=== PATIENT | male | born 1985 | race Caucasian/White ===

== ENCOUNTER 2024-07-20 04:47 | Emergency (ER) | payer MEDICAID, SELFPAY ==
--- NOTE | 2024-07-20 | ECG_ITS ---
Test Reason : MED CLEARANCE Blood Pressure : */* mmHG Vent. Rate : 51 BPM Atrial Rate : 51 BPM P-R Int : 172 ms QRS Dur : 96 ms QT Int : 440 ms P-R-T Axes : 58 55 37 degrees QTcB Int : 405 ms Sinus bradycardia Otherwise normal ECG No previous ECGs available Referred By: Generic ED Physician Electronically Signed By: TERESA JAQUEZ MD
[2024-07-20 04:50] VITALS: BP 125/74; PULSE 60; RESP 16; TEMP 36.4; O2SAT 99; BMI 25.1
[2024-07-20 05:43] LABS: MANUAL DIFF FLAG NO
[2024-07-20 05:44] LABS: Basophils Absolute Auto 0.1 X10*3/uL (0.0-0.2); Basophils Percent Auto 0.8 % (0-2); Eosinophils Absolute Auto 0.2 X10*3/uL (0.0-0.4); Eosinophils Percent Auto 2.6 % (0-4); Hematocrit 38.2 % (42.0-52.0); Hemoglobin 12.8 g/dl (14.0-18.0); Imm Gran Abs Auto 0.03 X10*3/uL (0.00-0.03); Imm Gran Pct Auto 0.3 % (0.0-0.4); Lymphocytes Absolute Auto 3.2 X10*3/uL (1.2-4.9); Mean Corpuscular HGB Conc 33.5 g/dl (31.0-36.0); Mean Corpuscular Hemoglobin 30.2 pg (27.0-33.0); Mean Corpuscular Volume 90.1 fL (80.0-98.0); Mean Platelet Volume 10.1 fL (9.4-12.4); Monocytes Percent Auto 10.8 % (2-11); Neutrophils Absolute Auto 4.8 x10*3/uL (2.0-8.3); Neutrophils Percent Auto 51.5 % (45-73); Platelet Count 221 X10*3/uL (160-400); Red Blood Count 4.24 X10*6/uL (4.60-5.80); Red Cell Distribution Width 12.9 % (11.0-16.0); White Blood Count 9.3 X10*3/uL (4.8-10.8)
[2024-07-20 06:01] LABS: Acetaminophen LAB < 3 mcg/mL (<30); Alanine Aminotransferase 25 U/L (0-40); Alkaline Phosphatase 83 U/L (39-117); Anion Gap 12 (12-20); Aspartate Amino Transferase 30 U/L (5-37); Bilirubin Total 0.3 mg/dL (0.0-1.0); Blood Urea Nitrogen 21 mg/dL (9-16); Calcium 8.9 mg/dL (8.4-10.2); Carbon Dioxide 24 mmol/L (22-29); Chloride 109 mmol/L (96-108); Creatinine Clr Calc Pharmacy 122.4; Estimated Glomerular Filt Rate > 60; Ethanol < 10 mg/dL; Glucose Random 140 mg/dL (60-115); Potassium 3.8 mmol/L (3.3-5.1); Salicylate < 5.0 mg/dL (15-30); Sodium 141 mmol/L (135-145); Total Protein 6.7 g/dL (6.5-8.0)
--- NOTE | 2024-07-20 06:37 | ED_ITS ---
HPI - General Adult General Chief complaint: Psychiatric Symptoms Stated complaint: stop taking medication can't sleep Time Seen by Provider: 07/20/24 06:34 Source: patient Mode of arrival: ambulatory Limitations: no limitations History of Present Illness ED Provider: Zoey Palacios PA-C HPI narrative: Patient is a 39 year old assigned male at with a history of bipolar disorder presenting to the emergency department today with insomnia and feeling paranoid. Patient states that over the last 3 days he has had difficulty sleeping and has not been taking his lamictal medication. Patient denies any dizziness, lightheadedness, abdominal pain, nausea, vomiting, fever, chills, blurry vision, double vision, loss of vision, chest pain, difficulty breathing, shortness of breath, back pain, night sweats, pain with urination, increased urinary frequency, increased urinary urgency, blood in his urine or stool, syncope or a near syncopal episode, recent trauma or falls, bowel incontinence, bladder incontinence, or any other complaints at this time. Onset (ago): day(s) (3) Relieving factors: none Exacerbating factors: none Associated symptoms: denies other symptoms Treatments prior to arrival: none Related Data Home Medications ?Medication ?Instructions ?Recorded ?Confirmed buprenorphine 8 mg-naloxone 2 mg 2 film buccal BID 07/20/24 07/20/24 sublingual film (Suboxone) Allergies Allergy/AdvReac Type Severity Reaction Status Date / Time haloperidol [From Haldol] Allergy Unknown Verified 07/20/24 04:52 olanzapine [From Zyprexa] Allergy Unknown Verified 07/20/24 04:52 Review of Systems 2 Constitutional: Constitutional: Reports no additional constitutional complaints, Denies chills, Denies fever(s) and Denies night sweats Eyes: Eyes: Reports no additional eye complaints, Denies blurry vision, Denies change in vision, Denies diplopia, Denies eye discharge, Denies loss of vision and Denies eye pain ENT: Denies dizziness Cardiovascular: Cardiovascular: Reports no additional cardiovascular complaints, Denies chest pain, Denies lightheadedness, Denies Loss of Consciousness and Denies dyspnea Respiratory: Respiratory: Reports no additional respiratory complaints and Denies dyspnea Gastrointestinal: Gastrointestinal: Reports no additional gastrointestinal complaints, Denies abdominal pain, Denies melena, Denies hematochezia, Denies change in bowel habits and Denies change in stool character Genitourinary: Genitourinary: Reports no additional male genitourinary complaints, Denies hematuria, Denies oliguria, Denies difficulty urinating, Denies dysuria, Denies urinary frequency, Denies urinary hesitancy, Denies urinary incontinence and Denies urinary urgency Musculoskeletal: Musculoskeletal: Reports no additional musculoskeletal complaints, Denies numbness and Denies tingling Neurologic: Denies dizziness, Denies loss of vision, Denies numbness and Denies tingling Psychiatric: Psychiatric: Reports abnormal sleep pattern, Reports paranoia, Denies homicidal ideation and Denies suicidal ideation Endocrine: Endocrine: Reports no additional endocrine complaints Hematologic/Lymphatic: Hematologic/Lymphatic: Reports no additional hematologic/lymphatic complaints Allergic/Immunologic: Allergic/Immunologic: Reports no additional allergic/immunologic complaints PMFSH Past Medical History Attestation statement: The following information was validated with the patient. Source: old records reviewed and nursing notes reviewed Social History Social History Advance Directives: No Advance Directives Information Provided: Yes Do you have a plan to hurt others: No Plan Physical Exam ED Vital Signs: Vital Signs - 24 hr 07/20/24 04:50 07/20/24 08:07 Temperature 97.6 F 97.6 F Pulse Rate 60 54 Respiratory Rate 16 18 Blood Pressure 125/74 122/76 Pulse Oximetry 99 98 Oxygen Delivery Method Room Air Room Air BMI result Body Mass Index 25.1 Const General: cooperative, no acute distress, alert and awake Nutritional Appearance: well nourished Orientation/consciousness: patient oriented x3 Limitations: no limitations [facility] Head: Yes normal to inspection and Yes atraumatic Ears: hearing grossly normal bilaterally and external ears normal General nose exam: Normal external nose present, no nasal discharge noted and no epistaxis Face and sinus: Yes normal facial exam, No abrasion and No laceration Mouth: Normal oral and palatal mucosa present, no drooling and no muffled voice Eyes General: appearance normal, both eyes and all related structures Periorbital: periorbital findings normal Eyelids: Yes eyelids normal Conjunctivae: conjunctivae normal Pupils: Equal, round and reactive pupils present EOM: EOMs intact bilaterally Neck Neck: Yes normal visual inspection, Yes full ROM and Yes no lymphadenopathy Chest Chest palpation & inspection: normal inspection of the chest Resp Effort & Inspection: normal respiratory effort and able to speak in complete sentences GI Inspection: Yes normal to inspection Neuro General: patient oriented x3, moves all extremities and CN's II-XI intact bilaterally Cranial nerves: Yes Equal, round and reactive pupils present Cognition (Neuro): normal cognition Extrem General: Yes normal to inspection, Yes full ROM and Yes capillary refill normal Psych Appearance: grossly normal Mental Status: mental status grossly normal Affect: Labile affect present Thought process: Confabulating thought process present Medications Administered Discontinued Medications Generic Name Dose Route Start Last Admin Trade Name Clementine PRN Reason Stop Dose Admin Buprenorphine/Naloxone 1 film 07/20/24 09:00 07/20/24 09:39 Buprenorphine/Naloxone 8/2 Mg Film SUBLINGUAL 1 film BID ANDREW Administration Medical Decision Making Medical Decision Making MDM Narrative: Patient is a 39 year old assigned male at with a history of bipolar disorder presenting to the emergency department today with insomnia and feeling paranoid. Patient's physical exam was as noted in the physical exam portion of this note. Patient's blood work was unremarkable. I explained my physical exam findings as well as all test results to the patient. I answered all questions asked by the patient. Patient's disposition is pending CARE team evaluation. 1300 --> Patient evaluated by the CARE team who determined a dual diagnosis bed was appropriate. Patient accepted at [facility]. Patient cleared for transfer. Observation care revealed the the patient does meet necessity for psychiatric hospitalization and has been accepted at [facility]. Final disposition discussed with the patient who verbalized understanding and agreement. Patient completed observation care at 1300, total time spent in observation care was 6 hours and 12 minutes. Differential Diagnosis Differential Diagnoses: The differential diagnosis associated with the presentation includes Sarai Medication non-compliance Insomnia Admission/Observation Consideration of admission/observation: Escalation of care including admission/observation considered Patient accepted at [facility]. Patient cleared for transfer. Consult Healthcare Provider Management of the patient was discussed with: Behavioral Health Provider (spoke to the CARE team as noted in the MDM Rationale portion of this note.) Lab Data [facility] Lab Attestation statement: I reviewed the patient's lab results. My interpretation of these results are in the MDM Rationale portion of this note. 07/20/24 05:38 07/20/24 05:38 Labs: Lab Results 07/20/24 07/20/24 Range/Units 05:38 08:25 WBC 9.3 (4.8-10.8) X10*3/uL RBC 4.24 L (4.60-5.80) X10*6/uL Hgb 12.8 L (14.0-18.0) g/dl Hct 38.2 L (42.0-52.0) % MCV 90.1 (80.0-98.0) fL MCH 30.2 (27.0-33.0) pg MCHC 33.5 (31.0-36.0) g/dl RDW 12.9 (11.0-16.0) % Plt Count 221 (160-400) X10*3/uL MPV 10.1 (9.4-12.4) fL Immature Gran % (Auto) 0.3 (0.0-0.4) % Neut % (Auto) 51.5 (45-73) % Lymph % (Auto) 34.0 (20-40) % [place] % (Auto) 10.8 (2-11) % Eos % (Auto) 2.6 (0-4) % Baso % (Auto) 0.8 (0-2) % Lymph # (Auto) 3.2 (1.2-4.9) X10*3/uL [place] # (Auto) 1.0 (0.1-1.2) X10*3/uL Eos # (Auto) 0.2 (0.0-0.4) X10*3/uL Baso # (Auto) 0.1 (0.0-0.2) X10*3/uL Abs Immat Gran (auto) 0.03 (0.00-0.03) X10*3/uL Absolute Neuts (auto) 4.8 (2.0-8.3) x10*3/uL Absolute Nucleated RBC 0.000 (0.0-0.012) X10*3/uL Nucleated RBC % (auto) 0.0 (0.0-0.2) /100WBC Sodium 141 (135-145) mmol/L Potassium 3.8 (3.3-5.1) mmol/L Chloride 109 H (96-108) mmol/L Carbon Dioxide 24 (22-29) mmol/L Anion Gap 12 (12-20) BUN 21 H (9-16) mg/dL Creatinine 0.75 (0.5-1.4) mg/dL Estim Creat Clear Calc 122.4 Estimated GFR > 60 Random Glucose 140 H (60-115) mg/dL Calcium 8.9 (8.4-10.2) mg/dL Total Bilirubin 0.3 (0.0-1.0) mg/dL AST 30 (5-37) U/L ALT 25 (0-40) U/L Alkaline Phosphatase 83 (39-117) U/L Total Protein 6.7 (6.5-8.0) g/dL Albumin 4.0 (3.5-5.0) g/dL Salicylates < 5.0 L (15-30) mg/dL Urine Opiates Screen Not Detected (Not Detect) Ur Buprenorphine Scrn Positive H (Not Detect) ng/mL Ur Oxycodone Screen Not Detected (Not Detect) ng/mL Urine Methadone Screen Not Detected (Not Detect) ng/mL Urine Fentanyl Screen Not Detected (Not Detect) Acetaminophen < 3 (<30) mcg/mL Ur Barbiturates Screen Not Detected (Not Detect) Ur Phencyclidine Scrn Not Detected (Not Detect) Ur Amphetamines Screen Not Detected (Not Detect) U Benzodiazepines Scrn Not Detected (Not Detect) Urine Cocaine Screen POSITIVE H (Not Detect) U Marijuana (THC) Screen POSITIVE H (Not Detect) Ethyl Alcohol < 10 mg/dL Independent Interpretation I performed an independent interpretation of an: EKG Interpretation: I independently interpreted this EKG and am in agreement with the below findings: Vent. Rate: 51 BPM Atrial Rate: 51 BPM P-R Int: 172 ms QRS Dur: 96 ms QT Int: 440 ms P-R-T Axes: 58 55 37 degrees QTcB Int: 405 ms Sinus bradycardia Otherwise normal ECG Electronically Signed By: SRINIVASAN REAVES MD Dictated By: Srinivasan Reaves MD Signed By: Electronically signed by Srinivasan Reaves MD 07/20/24 1057 Critical Care Time Critical Care Time Critical Care Time: Yes Total Critical Care Time: 38 Attestation: I spent 38 minutes of Critical Care Time with this patient. This does not include time spent on separately reported billable procedures. Discharge Plan Discharge Clinical Impression: Insomnia Patient Disposition: Xfer Other Transfer Details: [facility] Prescriptions: No Action buprenorphine-naloxone [Suboxone] 8-2 mg Film 2 film BUCCAL BID Rx Instructions: place 1 film on inside of (each) cheek Interventions: [place]-Suicide Risk Severity Scale Last Done: 07/20/24 05:49 Print Language: Telugu
[2024-07-20 08:07] VITALS: BP 122/76; PULSE 54; RESP 18; TEMP 36.4; O2SAT 98
[2024-07-20 08:43] LABS: Amphetamine Screen Urine Not Detected (Not Detect); Barbiturates, Urine Not Detected (Not Detect); Benzodiazepines Screen Urine Not Detected (Not Detect); Buprenorphine Scr Positive (Not Detect); Cannabinoid Screen Urine POSITIVE (Not Detect); Cocaine Screen Urine POSITIVE (Not Detect); Fentanyl, urine Not Detected (Not Detect); Methadone Screen, Urine Not Detected (Not Detect); Opiate Screen Urine Not Detected (Not Detect); Oxycodone Screen Urine Not Detected (Not Detect); Phencyclidine Screen Urine Not Detected (Not Detect)
[2024-07-20] MEDS: Buprenorphine/Naloxone 8/2 mg FILM 1 FILM SUBLINGUAL (09:39)
--- NOTE | 2024-07-20 10:52 | PC.NURSE ---
Per Cathy with , pt. is accepted to [facility]. No RN-to-RN report is required, and transport is being booked at this time via [facility] for an [facility] arrival.
--- NOTE | 2024-07-20 11:03 | MHC.CARE ---
Patient has been accepted to [facility] @ [place] [address] [address] Kimberlee michelle. RN and [place] notified and transport being booked.
== END 2024-07-20 13:08 | disposition other institution (70) ==
PROVIDERS: Emergency Provider Emergency Medicine
DX: G47.00 Insomnia, unspecified (principal); F22 Delusional disorders; Z91.148 Patient's other noncompliance with medication regimen for other reason; Z79.899 Other long term (current) drug therapy
CPT/HCPCS: 36415; 80053; 80143; 80179; 80307; 85025; 93005; 99284; S9485

== ENCOUNTER → 2024-07-20 05:26 | Outpatient (BNV) | payer MEDICAID, SELFPAY | PROVIDERS: Emergency Provider Emergency Medicine; Visit Provider Internal Medicine Cardiovascular Disease | DX: R00.1 Bradycardia, unspecified (principal) | CPT/HCPCS: 93010 ==

== ENCOUNTER 2024-12-26 14:50 | Emergency (ER) | payer MEDICAID, SELFPAY ==
--- NOTE | ~2024-12-26 | XR_ITS ---
EXAMINATION: XR CHEST CLINICAL INFORMATION: chest pain COMPARISON: None available. TECHNIQUE: 2 views of the chest were obtained. FINDINGS: No significant abnormality is noted involving the heart, lungs, mediastinum, bony thorax or soft tissues. XR/XR chest 2V IMPRESSION: Unremarkable examination. Electronically signed by: Jonnie Alfredo MD 12/26/2024 04:11 PM EDT
[2024-12-26 14:52] VITALS: BP 150/99; PULSE 75; O2SAT 100
[2024-12-26 15:19] VITALS: BP 148/96; PULSE 71; RESP 18; TEMP 37.2; O2SAT 100; BMI 25.8
--- NOTE | 2024-12-26 15:21 | ED_ITS ---
HPI - Chest Pain General Chief Complaint: General Medical Stated Complaint: HYPERTENSION/ANXIETY PER EMS Time Seen by Provider: 12/26/24 17:13 Source: patient, EMS, RN notes reviewed and old records reviewed Mode of arrival: EMS Limitations: no limitations History of Present Illness ED Provider: Debby Ceballos PA-C HPI narrative: Patient with past medical history significant for mood disorder presenting for evaluation of palpitations. He was discharged recently from [facility]. He has been on Seroquel for a while now for insomnia and mood stabilization. He takes 50 mg in the morning afternoon and 200 at night. He meets with a psychiatrist in [place], [place] once a month. He has not seen them since he was discharged from but does have adequate medicine at home. Patient recently celebrated her friend's birthday by indulging in excessive alcohol use for a week straight. Patient did not want to take his medication during this time as he did not want to be sleepy are unable to celebrate with his friends. His last drink was earlier today 3 nips. He reports not usually being a heavy drinker and only does it once or twice a month but never for this amount of time span. Around 02:00 this morning patient had a lot of tightness in his ears he felt nauseous with palpitations. This continued for several hours including sweating. He sought medical attention for this at a local urgent care facility which referred him to the emergency department. He is no longer endorsing any symptoms and denies any SI HI or AVH. He does not want a psych consultation. He believes his symptoms are due to loss of sleep only having 1-2 hours a night for the past 2-3 nights. He does feel tired and would like to sleep he has not taken his Seroquel again yet for reports that he has gone this long before without taking it and we continued it on his own accord. Patient is denying any current chest pain palpitations difficulty with breathing lightheadedness, abdominal pain, nausea, vomiting, fever, chills, blurred vision, double vision, loss of vision, back pain, night sweats, painful urination or change in urinary output her input. No syncope or near syncopal episodes no recent trauma no bowel incontinence or bladder incontinence. Patient used to take Suboxone and recently came off of it and got switched to a different medicine instead of while he was at the [facility]. Patient feels well hydrated denying any muscle cramping joint pain or rashes no tactile hallucinations Related Data Home Medications ?Medication ?Instructions ?Recorded ?Confirmed buprenorphine 8 mg-naloxone 2 mg 2 film buccal BID 07/20/24 sublingual film (Suboxone) Previous Rx's ?Medication ?Instructions ?Recorded clonidine HCl 0.1 mg tablet 0.1 mg PO BID withdrawal # 14 tabs 12/26/24 Allergies Allergy/AdvReac Type Severity Reaction Status Date / Time haloperidol (From Haldol) Allergy Unknown Verified 12/26/24 15:23 olanzapine (From Zyprexa) Allergy Unknown Verified 12/26/24 15:23 Review of Systems 2 Review of Systems: Yes all other systems are reviewed and are negative ENT: Reports Normal hearing present Neurologic: Reports Normal hearing present [facility] Past Medical History Attestation statement: The following information was validated with the patient. Source: old records reviewed and nursing notes reviewed Social History Social History Advance Directives: No Advance Directives Information Provided: No Do you have a plan to hurt others: No Plan Physical Exam 2 Vital Signs: Vital Signs: Last Vital Signs Temp 98.9 F 12/26/24 18:18 Pulse 61 12/26/24 18:18 Resp 17 12/26/24 18:18 BP 164/96 H 12/26/24 18:18 Pulse Ox 97 12/26/24 18:18 O2 Del Method Room Air 12/26/24 18:18 BMI result Body Mass Index 25.8 Const: General: cooperative, healthy appearing, comfortable, no acute distress, well developed, alert, awake, Physically active, acute distress and well groomed Nutritional Appearance: average body habitus O rientation/consciousness: patient oriented x3 Limitations: no limitations HEENT: Head: Yes normal to inspection Ears: hearing grossly normal bilaterally General nose exam: Normal external nose present Face and sinus: Yes normal facial exam Mouth: Normal oral and palatal mucosa present, lip normal, tongue normal, oropharynx normal and moist mucous membranes abnormal (dry) Throat: Yes posterior oropharynx normal, Yes tonsils normal and Yes uvula midline Eyes: General: appearance normal, both eyes and all related structures V isual Lacy: normal visual lacy by confrontation Alignment and Position: a lignment normal Periorbital: periorbital findings normal Eyelids: Yes eyelids normal Conjunctivae: conjunctivae normal Sclerae: sclerae normal Corneas: corneas normal Pupils: Equal, round and reactive pupils present EOM: EOMs intact bilaterally Neck: Neck: Yes normal visual inspection, Yes full ROM, Yes no lymphadenopathy and Yes no meningeal signs Lymphatic: no lymphadenopathy noted Chest: Chest palpation & inspection: normal inspection of the chest Resp: Effort & Inspection: normal respiratory effort and able to speak in complete sentences Auscultation: clear to auscultation bilaterally Cardio: Jugular venous distension: no JVD Rate: regular rate Rhythm: r egular rhythm Heart sounds: S1 normal heart sound present and S2 normal heart sound present Peripheral pulses: Peripheral pulses 2+ throughout GI: Inspection: Yes normal to inspection Palpation (GI): Soft to palpation Auscultation: normal bowel sounds Rectal Exam - Male: Yes deferred : General: Yes no CVA tenderness Back/Spine/Pelvis: Back: no CVA tenderness Cervical Spine: cervical ROM normal Thoracic/Lumbar Spine: thoracic and lumbar spine normal to inspection Skin: General skin exam: no rashes or lesions noted, elasticity normal and turgor normal Lesions: no lesions Rashes: no rashes Trauma: no lacerations or abrasions Wounds: no wounds Hair: normal Neuro: General: patient oriented x3, gait normal, tone normal, moves all extremities and no meningeal signs Cranial nerves: Yes CN's II-XII intact bilaterally, Yes Facial sensation intact/muscles of mastication intact, Yes Equal, round and reactive pupils present, Yes Normal accommodation reflex present, Yes Bilaterally intact EOM present, Yes Nystagmus not present, Yes Normal facial strength present, Yes Midline tongue present, Yes Normal hearing present, Yes Ability to bilaterally rotate head present and Yes Ability to bilaterally elevate shoulders present Cognition (Neuro): normal cognition Gait exam (Neuro): Normal gait present Motor exam (neuro): 5/5 motor strength present throughout, Pronator motor function not present, no tremor noted, no asterixis and Motor fasciculations not present Romberg Test: Negative Psych: Appearance: grossly normal Speech and movement: Normal speech and movement present Affect: Anxious affect present Attitude: cooperative T hought process: Normal thought process present Thought content: Normal thought content present Insight: Fair insight present (Psych) Judgement: Negar richards judgement present (Psych) Course Course Course Narrative: This is an RME performed by Edith Mead CNP: Additional HPI, ROS, PE not included below will be deferred to primary provider. patient is a 39-year-old male who presents emergency department for evaluation. He reports at approximately 02:00 this morning he was experiencing chest tightness, pain, palpitations while resting. This persisted throughout the morning. He presented to primary care doctor's office at approximately 14:00 this afternoon, admitted that 30 minutes prior to arrival to the office the pain had stopped. At the office he was found to be hypertensive 180s/120s. They advised him to go to the emergency department for evaluation. Initially he declined EMS transport but then did agree to come. Currently denies active chest pain. Plan: Serum labs, ECG, CXR Medications Administered Discontinued Medications Generic Name Dose Route Start Last Admin Trade Name Freq PRN Reason Stop Dose Admin Clonidine HCl 0.1 mg 12/26/24 17:54 12/26/24 18:12 Clonidine Hcl 0.1 Mg Tablet PO 12/26/24 17:55 0.1 mg ONCE ONE Administration Protocol Medical Decision Making Medical Decision Making [facility] Narrative: Well-appearing but anxious adult male here with past medical history significant for bipolar disorder with poor med compliance presenting to emergency department today for evaluation of palpitations and chest pressure that already resolved. He has been off his Seroquel for a week and had a week of binge drinking. He has a GCS of 15 and he is alert and orientated x4 answering all questions appropriately nonfocal neuro exam with no evidence of trauma. Currently asymptomatic with a benign reassuring physical exam mildly dry mucous membranes. He has not present with evidence of ICH or concussion clinically and no head trauma head CT imaging deferred. Without any trauma less concerning for a cervical spine fracture knee is without any midline tenderness step-offs or deformities. His lungs are clear to auscultation bilaterally and he has a soft nontender abdomen. We will run basic labs to check for other potential causes for palpitations however it is likely due to poor med compliance along with likely withdrawal from Seroquel along with recent use of alcohol mixed with insomnia and anxiety coming down from likely a manic episode. Patient has declined psych consult. Patient is specifically requesting clonidine as he feels this would best stabilize his symptoms until he is able to see his psychiatrist. He feels safe at home. Differential Diagnosis Differential Diagnoses: The differential diagnosis associated with the presentation includes steve, poor medication adherence, medication/ EtOH withdrawal, anxiety, cardiac arrhythmia, insomnia. Admission/Observation Consideration of admission/observation: Escalation of care including admission/observation considered Patient is alert orientated x3 he did not appear to be currently under the influence and in fact sober appearing. He was able to carry calm conversation with me without nodding off or not answering my questions appropriately. He seems to have good insight as to his goals are and denies any suicide or homicidal ideations. Although I did discuss closely with him concern for developing and current withdrawal patient does not want to be hospitalized nor see seeking psych consult nor does he want any IV fluids but does consent to having his blood work checked. I likely would have considered IV fluids and potential monitoring at the very least with physician obs but patient has declined this. He seemed to demonstrate the understanding that alcohol withdrawal can be life-threatening or as Seroquel withdrawal is most likely just monitored. Given his current state I do not believe he has the current threat to himself or others section 12 was deferred. Lab Data MDM Lab Attestation statement: I reviewed the patient's lab results. Discussed the leukocytosis with the patient but there is no left shift concerning for infection this could be due to his level of activity over this past week which was all not shared. But he denied any trauma. 12/26/24 16:28 12/26/24 16:28 Labs: Lab Results 12/26/24 Range/Units 16:28 WBC 13.0 H (4.8-10.8) X10*3/uL RBC 4.95 (4.60-5.80) X10*6/uL Hgb 14.6 (14.0-18.0) g/dl Hct 42.4 (42.0-52.0) % MCV 85.7 (80.0-98.0) fL MCH 29.5 (27.0-33.0) pg MCHC 34.4 (31.0-36.0) g/dl RDW 12.7 (11.0-16.0) % Plt Count 266 (160-400) X10*3/uL MPV 10.0 (9.4-12.4) fL Immature Gran % (Auto) 0.5 H (0.0-0.4) % Neut % (Auto) 66.5 (45-73) % Lymph % (Auto) 20.3 (20-40) % [place] % (Auto) 10.7 (2-11) % Eos % (Auto) 1.4 (0-4) % Baso % (Auto) 0.6 (0-2) % Lymph # (Auto) 2.6 (1.2-4.9) X10*3/uL [place] # (Auto) 1.4 H (0.1-1.2) X10*3/uL Eos # (Auto) 0.2 (0.0-0.4) X10*3/uL Baso # (Auto) 0.1 (0.0-0.2) X10*3/uL Abs Immat Gran (auto) 0.07 H (0.00-0.03) X10*3/uL Absolute Neuts (auto) 8.7 H (2.0-8.3) x10*3/uL Absolute Nucleated RBC 0.000 (0.0-0.012) X10*3/uL Nucleated RBC % (auto) 0.0 (0.0-0.2) /100WBC Sodium 139 (135-145) mmol/L Potassium 4.1 (3.3-5.1) mmol/L Chloride 103 (96-108) mmol/L Carbon Dioxide 28 (22-29) mmol/L Anion Gap 12 (12-20) BUN 8 L (9-16) mg/dL Creatinine 0.72 (0.5-1.4) mg/dL Estim Creat Clear Calc 127.5 Estimated GFR > 60 Random Glucose 98 (60-115) mg/dL Calcium 9.2 (8.4-10.2) mg/dL Magnesium 2.4 (1.6-2.6) mg/dL Total Bilirubin 0.3 (0.0-1.0) mg/dL AST 35 (5-37) U/L ALT 32 (0-40) U/L Alkaline Phosphatase 87 (39-117) U/L Troponin I High Sens < 2.7 (<3.5-35.0) ng/L Total Protein 7.6 (6.5-8.0) g/dL Albumin 4.9 (3.5-5.0) g/dL Influenza Type A (PCR) NEGATIVE (Negative) Influenza Type B (PCR) NEGATIVE (Negative) RSV RNA Qual (PCR) NEGATIVE (Negative) SARS-CoV-2 RNA (RT-PCR) NEGATIVE (Negative) Independent Interpretation I performed an independent interpretation of an: EKG Interpretation: Sinus Efrain at 59 beats per minute otherwise normal EKG when compared to the EKG on 07/20/2024. Chest x-ray with no significant abnormality of the heart lungs mediastinum bony thorax or soft tissues. No pneumothorax. Radiology Impression Discussion of test interpretation with radiology: I have reviewed the radiologist's reading. Tests considered The following testing was considered but not selected: Would have considered a tox screen had patient been obtunded were not able to follow or answer questions appropriately or been altered in any way along with potential other imaging is needed. Head he endorsed any chest pain or shortness of breath I also would have considered workup for PE. His PERC score however is 0 and can be ruled out clinically. Prescription Management I considered prescription management with: Other (Insomnia and hypertension/ withdrawal mgt) Chronic Conditions Patient?s care impacted by: Other Addiction Social Determinants Patient?s care significantly limited by Social Determinants of Health including: Low income, Alcoholism and drug addiction in family and Other Social Determinant of Health Discharge Plan Discharge Clinical Impression: Sedative, hypnotic or anxiolytic dependence with withdrawal, unspecified, Insomnia, Heart palpitations Patient Disposition: Home, Self-Care Instructions: Alcohol Withdrawal (ED), Insomnia (ED) Additional Instructions: You were seen in the emergency department today for evaluation of chest tightness and palpitations that occurred and resolved prior to arrival. He recently came off a binge drinking episode she also sounds like a manic episode along with 1 week of not taking her Seroquel. Your likely experiencing withdrawal from both of these but have declined inpatient level of care further intervention in the ED. and given a clonidine to help with the withdrawal effect as well as your blood pressure management is pertinent that you do follow up outpatient with your Behavioral Health and PCP specialist. If for any reason you you experience any new or concerning symptoms please call 911/return to the emergency department. Clonidine is considered a non-opioid alternative for managing withdrawal. It therefore comes without the potential for abuse or dependence associated with opioid-based therapies like methadone. While clonidine does not eliminate withdrawal symptoms entirely, it significantly reduces their intensity. This can be crucial for individuals trying to overcome addiction. However, clonidine is not without its own risks and side effects. These can include hypotension, dizziness, and sedation. As such, its use must be carefully monitored by healthcare professionals.? It is often part of a comprehensive treatment plan that may include other medications, therapy, and support systems. The goal is to provide a safer and more controlled withdrawal experience, paving the way for long-term recovery and rehabilitation. Prescriptions: New clonidine HCl 0.1 mg tablet 0.1 mg PO BID Qty: 14 0RF No Action buprenorphine-naloxone [Suboxone] 8-2 mg Film 2 film BUCCAL BID Rx Instructions: place 1 film on inside of (each) cheek Referrals: [facility] [place] [facility] [Provider Group] - 2 days Referral Note: set up continued care Interventions: ED Discharge Assessment Last Done: 12/26/24 18:18 Discharge Date/Time: 12/26/24 18:18 Print Language: Uzbek
--- NOTE | 2024-12-26 15:24 | ECG_ITS ---
Test Reason : chest pain Blood Pressure : */* mmHG Vent. Rate : 59 BPM Atrial Rate : 59 BPM P-R Int : 166 ms QRS Dur : 102 ms QT Int : 406 ms P-R-T Axes : 18 15 17 degrees QTcB Int : 401 ms Sinus bradycardia Otherwise normal ECG When compared with ECG of 20-Jul-2024 05:26, No significant change was found Referred By: Jennifer Mead Electronically Signed By: TERESA JAQUEZ MD
[2024-12-26 16:32] LABS: MANUAL DIFF FLAG NO
[2024-12-26 16:33] LABS: Hematocrit 42.4 % (42.0-52.0); Hemoglobin 14.6 g/dl (14.0-18.0); Imm Gran Abs Auto 0.07 X10*3/uL (0.00-0.03); Imm Gran Pct Auto 0.5 % (0.0-0.4); Lymphocytes Absolute Auto 2.6 X10*3/uL (1.2-4.9); Mean Corpuscular HGB Conc 34.4 g/dl (31.0-36.0); Mean Corpuscular Hemoglobin 29.5 pg (27.0-33.0); Mean Corpuscular Volume 85.7 fL (80.0-98.0); NRBC Abs Auto 0.000 X10*3/uL (0.0-0.012); NRBC Pct Auto 0.0 /100WBC (0.0-0.2); Platelet Count 266 X10*3/uL (160-400); Red Blood Count 4.95 X10*6/uL (4.60-5.80); White Blood Count 13.0 X10*3/uL (4.8-10.8)
[2024-12-26 16:53] LABS: Alanine Aminotransferase 32 U/L (0-40); Albumin Level 4.9 g/dL (3.5-5.0); Alkaline Phosphatase 87 U/L (39-117); Anion Gap 12 (12-20); Aspartate Amino Transferase 35 U/L (5-37); Blood Urea Nitrogen 8 mg/dL (9-16); Calcium 9.2 mg/dL (8.4-10.2); Carbon Dioxide 28 mmol/L (22-29); Chloride 103 mmol/L (96-108); Creatinine Clr Calc Pharmacy 127.5; Estimated Glomerular Filt Rate > 60; Magnesium 2.4 mg/dL (1.6-2.6); Potassium 4.1 mmol/L (3.3-5.1); Sodium 139 mmol/L (135-145); Total Protein 7.6 g/dL (6.5-8.0)
[2024-12-26 17:00] LABS: Troponin-I High Sensitivity < 2.7 ng/L (<3.5-35.0)
[2024-12-26 17:47] LABS: Resp Syncy Virus RNA Qual PCR NEGATIVE (Negative); SARS COV2 PCR INHOUSE NEGATIVE (Negative)
[2024-12-26 18:12] VITALS: BP 164/96
[2024-12-26 18:18] VITALS: BP 164/96; PULSE 61; RESP 17; TEMP 37.2; O2SAT 97
== END 2024-12-26 18:18 | disposition home or self-care (01) ==
PROVIDERS: Nurse Practitioner Family; Emergency Provider Internal Medicine
DX: G47.00 Insomnia, unspecified (principal); F13.239 Sedative, hypnotic or anxiolytic dependence with withdrawal, unspecified; R00.2 Palpitations; R00.1 Bradycardia, unspecified; F41.9 Anxiety disorder, unspecified; R11.0 Nausea; Z11.52 Encounter for screening for COVID-19; Z79.899 Other long term (current) drug therapy; Z91.199 Patient's noncompliance with other medical treatment and regimen due to unspecified reason
CPT/HCPCS: 36415; 71046; 80053; 83735; 84484; 85025; 87637; 93005; 99283

== ENCOUNTER → 2024-12-26 15:24 | Outpatient (BNV) | payer MEDICAID, SELFPAY | PROVIDERS: Emergency Provider Internal Medicine; Visit Provider Internal Medicine Cardiovascular Disease | DX: R00.1 Bradycardia, unspecified (principal) | CPT/HCPCS: 93010 ==

== ENCOUNTER → 2024-12-26 15:25 | Outpatient (BNV) | payer MEDICAID, SELFPAY | PROVIDERS: Visit Provider Radiology Diagnostic Radiology | DX: R07.9 Chest pain, unspecified (principal) | CPT/HCPCS: 71046 ==

== ENCOUNTER 2024-12-28 07:02 | Emergency (ER) | payer MEDICAID, SELFPAY ==
--- OUTSIDE RECORDS SUMMARY | 2024-07-25 07:05 | XMS_ITS | Continuity of Care Document ---
Author Name [facility] Organization [facility] Care Team Providers Care Cat Scan Technologist Name Role Phone [facility] Unavailable Unavailable Problems Combined list of problems from Department of Defense and Veterans Affairs facilities. It does not include entries that were removed or entered in error. Problem Status Onset Date Problem Type Date of Resolution Comments Source Homeless single person Active Condition [facility] Diagnosis: ICD-10-CM Z59.00 Homelessness unspecified Active Diagnosis [facility] Encounters Combined list of: 1) Encounters from Department of Veterans Affairs facilities going backup to the last 18 months, not all [facility] inpatient encounters are included; 2) Encounters from the Department of Defense facilities going backup to 280 months. Location Location Details Encounter Type Encounter Number Reason For Visit Attending Provider ADM Date DC Date Status Disposition Source [facility] PROGRAM INTAKE ASSESSMENT [id number] Diagnos is: ICD-10- CM Z59.00 Homeles sness unspeci CASA Craig ICE 03/21 [facility]NAG[facility] [id number] 1. Diagnos is: ICD-10- CM Z59.00 Homeles sness unspeci CAS[facility] Craig ICE 05/16 [facility] Outpatient Encounter [id number] [facility] Out[facility]counter [id number] [facility]
--- NOTE | ~2024-12-28 | XR_ITS ---
EXAMINATION: XR CHEST 1 VIEW HISTORY: cp COMPARISON: Comparison is made with the prior examination dated 12/26/2024. FINDINGS: A single AP portable view of the chest performed at 8:21 AM is submitted. There are low lung volumes. The lungs are clear. There is no pleural effusion, pneumothorax, or pulmonary vascular congestion. The heart is normal in size. The bones are intact. XR/XR chest 1V IMPRESSION: Low lung volumes. No acute cardiopulmonary abnormality. Electronically signed by: Jadon Snow MD 12/28/2024 08:43 AM EDT
[2024-12-28 07:07] VITALS: BP 210/100; PULSE 94; O2SAT 96
--- NOTE | 2024-12-28 07:09 | ECG_ITS ---
Test Reason : chest pain Blood Pressure : */* mmHG Vent. Rate : 76 BPM Atrial Rate : 76 BPM P-R Int : 158 ms QRS Dur : 98 ms QT Int : 382 ms P-R-T Axes : 51 -1 12 degrees QTcB Int : 429 ms Normal sinus rhythm Normal ECG When compared with ECG of 26-Dec-2024 15:28, No significant change was found Referred By: Generic ED Physician Electronically Signed By: TERESA JAQUEZ MD
[2024-12-28 07:10] VITALS: BP 144/92; PULSE 72; RESP 16; TEMP 36.6; O2SAT 98; BMI 27.4
--- NOTE | 2024-12-28 07:44 | ED_ITS ---
HPI - Chest Pain General Chief Complaint: Chest Pain Stated Complaint: chest pain/pressure,bp 210/100 per bls ems Time Seen by Provider: 12/28/24 07:31 History of Present Illness HPI narrative: Patient is a 39-year-old male with a history of cocaine heroin use. Presents today with having chest pain after using cocaine. Patient stated that when he used cocaine the pain gets worse. When the pain subsided he uses more cocaine and then it came back. Patient denies any shortness of breath no diaphoresis. No fever no chills. No history of diabetes, hypertension positive history of smoking positive history of cocaine no history of NC in the past no family history of coronary artery disease no leg swelling no history of blood clots patient is from home no radiation of the pain patient received aspirin prior to arrival. Related Data Home Medications ?Medication ?Instructions ?Recorded ?Confirmed buprenorphine 8 mg-naloxone 2 mg 2 film buccal BID 07/20/24 sublingual film (Suboxone) Previous Rx's ?Medication ?Instructions ?Recorded clonidine HCl 0.1 mg tablet 0.1 mg PO BID withdrawal # 14 tabs 12/26/24 Allergies Allergy/AdvReac Type Severity Reaction Status Date / Time haloperidol (From Haldol) Allergy Unknown Verified 12/28/24 07:10 olanzapine (From Zyprexa) Allergy Unknown Verified 12/28/24 07:10 Review of Systems 2 Review of Systems: Positive chest pain PMFSH Past Medical History Attestation statement: The following information was validated with the patient. Social History Social History Advance Directives: No Advance Directives Information Provided: Yes Do you have a plan to hurt others: No Plan Physical Exam 2 Vital Signs: Vital Signs: Last Vital Signs Temp 97.9 F 12/28/24 10:18 Pulse 52 12/28/24 10:18 Resp 12 12/28/24 10:18 BP 94/57 L 12/28/24 10:18 Pulse Ox 95 12/28/24 10:18 O2 Del Method Room Air 12/28/24 10:18 BMI result Body Mass Index 27.4 Appearance: Alert. Oriented X3. No acute distress. Eyes: Pupils equal, round and reactive to light. ENT: Pharynx normal. Neck: Normal inspection. Neck supple. No lymph nodes noted. No crepitus CVS: Normal heart rate and rhythm. Pulses normal. Normal S1 and S2 Respiratory: No respiratory distress. Breath sounds normal. No Wheezing. No rales Abdomen: Soft and nontender. No rigidity. No distention. good BS x4 Skin: Skin warm and dry. Normal skin color. Normal skin turgor. Extremities: No lower extremity edema. Neurovascular intact to all extremities. No Lacerations. No Rash Neuro: Oriented X 3. No motor deficit. No sensory deficit. Moving all extermities. No slurred speech Medical Decision Making Medical Decision Making [facility] Narrative: My interpretation patient's EKG showed a sinus rhythm heart rate is 80 RI QRS QTC normal no acute ST segment elevation noted. Get cardiac enzymes will monitor patient carefully. Explained to patient the need to stop using cocaine and fentanyl. Patient states understanding. Patient is 39 years old no significant risk factors except for smoking and polysubstance abuse. Patient had chest pain that is worse with cocaine. After stopping cocaine for little bit the symptoms seems to have improved. On arrival in the emergency department his EKG appeared normal. His troponin was normal. We did a 2nd set of troponin which were negative. Explained to patient the need to stop using cocaine. Ordered substance abuse process coach. Patient refused. Stated he does not want detox at this time. Patient's hemoglobin is normal. Explained to patient worsening condition return to abstain from using cocaine. Follow-up with cardiology on an outpatient basis. Electrolytes unremarkable patient's tox screen came back positive for cocaine and fentanyl. Alcohol was 12. Currently in stable condition. Will discharge home Differential Diagnosis Differential Diagnoses: The differential diagnosis associated with the presentation includes Polysubstance abuse, pneumonia, pneumothorax Admission/Observation Consideration of admission/observation: Escalation of care including admission/observation considered Lab Data [facility] Lab Attestation statement: I reviewed the patient's lab results. 12/28/24 07:51 12/28/24 07:51 Labs: Lab Results 12/28/24 12/28/24 12/28/24 Range/Units 07:48 07:51 10:11 WBC 12.0 H (4.8-10.8) X10*3/uL RBC 4.36 L (4.60-5.80) X10*6/uL Hgb 12.9 L (14.0-18.0) g/dl Hct 37.0 L (42.0-52.0) % MCV 84.9 (80.0-98.0) fL MCH 29.6 (27.0-33.0) pg MCHC 34.9 (31.0-36.0) g/dl RDW 12.6 (11.0-16.0) % Plt Count 234 (160-400) X10*3/uL MPV 9.9 (9.4-12.4) fL Immature Gran % (Auto) 0.3 (0.0-0.4) % Neut % (Auto) 71.1 (45-73) % Lymph % (Auto) 18.4 L (20-40) % [place] % (Auto) 8.9 (2-11) % Eos % (Auto) 0.7 (0-4) % Baso % (Auto) 0.6 (0-2) % Lymph # (Auto) 2.2 (1.2-4.9) X10*3/uL [place] # (Auto) 1.1 (0.1-1.2) X10*3/uL Eos # (Auto) 0.1 (0.0-0.4) X10*3/uL Baso # (Auto) 0.1 (0.0-0.2) X10*3/uL Abs Immat Gran (auto) 0.04 H (0.00-0.03) X10*3/uL Absolute Neuts (auto) 8.5 H (2.0-8.3) x10*3/uL Absolute Nucleated RBC 0.000 (0.0-0.012) X10*3/uL Nucleated RBC % (auto) 0.0 (0.0-0.2) /100WBC Sodium 137 (135-145) mmol/L Potassium 4.0 (3.3-5.1) mmol/L Chloride 104 (96-108) mmol/L Carbon Dioxide 25 (22-29) mmol/L Anion Gap 12 (12-20) BUN 10 (9-16) mg/dL Creatinine 0.70 (0.5-1.4) mg/dL Estim Creat Clear Calc 141.6 Estimated GFR > 60 Random Glucose 119 H (60-115) mg/dL Calcium 8.6 D (8.4-10.2) mg/dL Troponin I High Sens < 2.7 < 2.7 (<3.5-35.0) ng/L Urine Opiates Screen Not Detected (Not Detect) Ur Buprenorphine Scrn Not Detected (Not Detect) ng/mL Ur Oxycodone Screen Not Detected (Not Detect) ng/mL Urine Methadone Screen Not Detected (Not Detect) ng/mL Urine Fentanyl Screen POSITIVE H (Not Detect) Ur Barbiturates Screen Not Detected (Not Detect) Ur Phencyclidine Scrn Not Detected (Not Detect) Ur Amphetamines Screen Not Detected (Not Detect) U Benzodiazepines Scrn Not Detected (Not Detect) Urine Cocaine Screen POSITIVE H (Not Detect) U Marijuana (THC) Screen POSITIVE H (Not Detect) Ethyl Alcohol 12 mg/dL Independent Interpretation I performed an independent interpretation of an: EKG (Sinus heart rate is 70 RI QRS QTC normal no acute ST segment elevation) and Plain X-Ray (Chest x-ray grossly negative for pneumonia pneumothorax) Radiology Impression Discussion of test interpretation with radiology: I have reviewed the radiologist's reading. Chronic Conditions History of polysubstance abuse Social Determinants Patient?s care significantly limited by Social Determinants of Health including: Alcoholism and drug addiction in family and Problems related to primary support group Discharge Plan Discharge Clinical Impression: Chest pain Patient Disposition: Home, Self-Care Instructions: Chest Pain (DC) Prescriptions: No Action buprenorphine-naloxone [Suboxone] 8-2 mg Film 2 film BUCCAL BID Rx Instructions: place 1 film on inside of (each) cheek clonidine HCl 0.1 mg tablet 0.1 mg PO BID Qty: 14 0RF Referrals: Srinivasan Reaves MD [Physician, Cardiology] - 3 days Print Language: Syriac
[2024-12-28 07:54] LABS: MANUAL DIFF FLAG NO
[2024-12-28 07:57] LABS: Hematocrit 37.0 % (42.0-52.0); Hemoglobin 12.9 g/dl (14.0-18.0); Imm Gran Abs Auto 0.04 X10*3/uL (0.00-0.03); Imm Gran Pct Auto 0.3 % (0.0-0.4); Lymphocytes Absolute Auto 2.2 X10*3/uL (1.2-4.9); Mean Corpuscular HGB Conc 34.9 g/dl (31.0-36.0); Mean Corpuscular Hemoglobin 29.6 pg (27.0-33.0); Mean Corpuscular Volume 84.9 fL (80.0-98.0); NRBC Abs Auto 0.000 X10*3/uL (0.0-0.012); NRBC Pct Auto 0.0 /100WBC (0.0-0.2); Platelet Count 234 X10*3/uL (160-400); Red Blood Count 4.36 X10*6/uL (4.60-5.80); White Blood Count 12.0 X10*3/uL (4.8-10.8)
[2024-12-28 08:09] LABS: Anion Gap 12 (12-20); Blood Urea Nitrogen 10 mg/dL (9-16); Calcium 8.6 mg/dL (8.4-10.2); Carbon Dioxide 25 mmol/L (22-29); Chloride 104 mmol/L (96-108); Creatinine Clr Calc Pharmacy 141.6; Estimated Glomerular Filt Rate > 60; Potassium 4.0 mmol/L (3.3-5.1); Sodium 137 mmol/L (135-145)
[2024-12-28 08:09] LABS: Cannabinoid Screen Urine POSITIVE (Not Detect)
[2024-12-28 08:23] LABS: Troponin-I High Sensitivity < 2.7 ng/L (<3.5-35.0)
--- OUTSIDE RECORDS SUMMARY | 2024-12-28 08:29 | XMS_ITS | Patient Health Record ---
Author Organization [facility] Address [address] [place] [address] Care Team Providers Care Search Specialist Name Role Phone Rafaela Guthrie PC Primary Care Provider Selam enriquez Reason For Referral No Information Plan Of Treatment Pending Test Test Name Order Date XRAY KNEE RIGHT 08/22/2019 Insurance Providers Payer Name Payer Address Payer Phone Subscriber Number Group Number Insured Name Patient Relationship to Insured Coverage Start Date Coverage End Date Medicaid [address] [place] [address] [id number] Bryn Tovar Self - patient is the insured [facility] [address] [place] [address] [id number] Bryn Conti Self - patient is the insured
--- OUTSIDE RECORDS SUMMARY | 2024-12-28 08:29 | XMS_ITS | Clinical Summary ---
Author Organization [facility] Address [address] [address] Care Team Providers Care Supervisor Show Operations Name Role Phone Jose Daniel Young Primary Care Provider [phone] Allergies Active Allergy Reactions Criticality Noted Date Comments Cariprazine 11/26/2020 Haloperidol Other (see comments) 10/12/2021 Per pt tardive Dyskinesia Olanzapine 11/26/2020 Medications cloNIDine (CATAPRES) 0.1 mg tablet Take 0.1 mg by mouth 2 times daily. Active gabapentin (NEURONTIN) 300 mg capsule Take 300 mg by mouth 3 times daily. Active lamoTRIgine (LaMICtal) 25 mg tablet Take 50 mg by mouth daily. Active propranoloL (INDERAL) 10 mg tablet Take 10 mg by mouth 3 times daily. Active QUEtiapine (SEROquel) 300 mg tablet Take 300 mg by mouth daily. Active QUEtiapine (SEROquel) 50 mg tablet Take 50 mg by mouth daily. Active Active Problems Problem Noted Date Diagnosed Date Schizoaffective disorder, bipolar type 2 Social History Tobacco Use Types Packs/Day Years Used Date Smoking Tobacco: Never Assessed Sex and Gender Information Value Date Recorded Sex Assigned at Not on file Legal Sex Male 4:25 PM EDT Gender Identity Not on file Sexual Orientation Not on file Last Filed Vital Signs Vital Sign Reading Time Taken Comments Blood Pressure 126/74 10/16/2021 12:27 PM EDT Pulse 72 10/16/2021 12:27 PM EDT Temperature 36.1 C (97 F) 10/16/2021 12:27 PM EDT Respiratory Rate 18 10/15/2021 8:49 PM EDT Oxygen Saturation 98% 10/16/2021 12:27 PM EDT Inhaled Oxygen Concentration - - Weight - - Height - - Body Mass Index - - Plan of Treatment Health Maintenance Due Date Last Done Comments MMR Vaccines (1 of 1 - Standard series) 1985 Hepatitis C Screening 2002 Periodic Health Exam 2002 Tetanus Diphtheria and Pertussis Vaccines (TD and TDaP) (1 - Tdap) 2003 CoVid-19 Vaccine (4 - 2023-2 5 season) 2024 07/02/2021, 11/19/2020, 10/22/2020 Influenza (Seasonal) 01/26/2025 HIB Vaccines Aged Out No longer eligi ble based on patient's age to complete this topic HPV Vaccines Aged Out No longer eligi ble based on patient's age to complete this topic Meningococcal Vaccine Aged Out No marguerite sobia eligible based on patient's age to complete this topic Pneumococcal Vaccine: Pediatrics (0 to 5 Years) and At-Risk Patients (6 to 64 Years) Aged Out No longer eligible b ased on patient's age to complete this topic Insurance MEDICAID [place] [employer] CHOICE Care Teams Supervisor Show Operations Relationship Specialty Start Date End Date Jose Daniel Young [address] [place] [id number] PCP - General 10/12/21
--- OUTSIDE RECORDS SUMMARY | 2024-12-28 08:29 | XMS_ITS | Clinical Summary ---
Author Organization [facility] Address [address] [place] [address] Phone Care Team Providers Care Electronics Engineer Name Role Phone Physician, Pcp Unknown Primary Care Provider Flavia vailable Allergies Active Allergy Reactions Criticality Noted Date Comments Haloperidol Dyskinesia 06/07/2024 Olanzapine Dyskinesia 06/07/2024 Medications lamoTRIgine (LaMICtal) 25 mg tablet Take 2 tablets (50 mg total) by mouth daily. Active QUEtiapine (SEROquel) 100 mg tablet Take 1 tablet (100 mg total) by mouth at bedtime. Active buprenorphine-n aloxone (SUBOXONE) 8-[address] film [address] 1 film under the tongue 2 (two) times a day. After the medication is completely dissolved, take a large sip of water, swish it around teeth and gums, and swallow. Wait at least 1 hour before brushing teeth to avoid damage to your teeth. Max Daily Amount: 2 films Active Medical History Medical History Date Comments Bipolar affective disorder ([facility] V24, [facility] V28) Schizoaffective disorder ([facility] V24, [facility] V 28) Anxiety PTSD (post-traumatic stress disorder) Social History Tobacco Use Types Packs/Day Years Used Date Smoking Tobacco: Every Day Cigarettes Smokeless Tobacco: Never Tobacco Cessation:Ready to Q uit: Not Asked; Counseling Given: Not Answered Sex and Gender Information Value Date Recorded Sex Assigned at Not on file Legal Sex Male 2:57 AM EST Gender Identity Not on file Sexual Orientation Not on file Obstetrics History Last Filed Vital Signs Vital Sign Reading Time Taken Comments Blood Pressure 130/90 06/07/2024 8:58 AM EST Pulse 55 06/07/2024 8:58 AM EST Temperature 36.7 C (98.1 F) 06/07/2024 8:58 AM EST Respiratory Rate 18 06/07/2024 8:58 AM EST Oxygen Saturation 100% 06/07/2024 8:58 AM EST Inhaled Oxygen Concentration - - Weight 68 kg (150 lb) 06/07/2024 3:01 AM EST Height 170.2 cm (5' 7 ) 06/07/2024 3:01 AM EST Body Mass Index 23.49 06/07/2024 3:01 AM EST Plan of Treatment Health Maintenance Due Date Last Done Comments DTaP,Tdap,and Td Vaccines (1 - Tdap) 2003 Hepatitis A Vaccines (1 of 2 - Risk 2-dose series) 2003 Hepatitis B Vaccines (1 of 3 - 19+ 3-dose series) 2003 Pneumococcal Vaccine: Pediat rics (0 to 5 Years) and At-Risk Patients (6 to 64 Years) (1 of 2 - PCV) 2003 COVID-19 Vaccine (2023-2 5 season) 2024 Cholesterol Screening (Lipid Panel) 06/07/2024 HIV Screening 06/07/2024 Hepatitis C Screening 06/07/2024 Social Influencers of Health Screening 06/07/2024 Influenza Vaccine (#1) 2025 Depression Screening 05/18/2025 05/18/2024 HIB Vaccines Aged Out No longer eligi ble based on patient's age to complete this topic HPV Vaccines Aged Out No longer eligi ble based on patient's age to complete this topic IPV Vaccines Aged Out No longer eligi ble based on patient's age to complete this topic MMR Vaccines Aged Out No longer eligi ble based on patient's age to complete this topic Meningococcal ACWY Vaccine Aged Out N o longer eligible based on patient's age to complete this topic Meningococcal B Vaccine Aged Out No l onger eligible based on patient's age to complete this topic RSV Immunization Patients Un mamie 20 months Aged Out No longer eligible b ased on patient's age to complete this topic Varicella Vaccines Aged Out No longer eligible based on patient's age to complete this topic Insurance MEDICAID - [place] Care Teams Electronics Engineer Relationship Specialty Start Date End Date Physician, Pcp Unknown PCP - General 06/07/24
--- OUTSIDE RECORDS SUMMARY | 2024-12-28 08:29 | XMS_ITS | Clinical Summary ---
Author Organization [employer] Address [address] [facility] [address] [place] [address] Care Team Providers Care [employer]ist Name Role Phone Naima Morton MD Primary Care Provide r Allergies No known active allergies Medications * This document contains information received from the source organization and may not represent a complete record from that organization. lamoTRIgine (LaMICtal) 25 MG tablet Take 50 mg by mouth Once per day. Active QUEtiapine (SEROquel) 100 MG tablet Take 100 mg by mouth at bedtime. Active Active Problems Problem Noted Date Diagnosed Date Hypertensive urgency 12/26/2024 Assessment & Plan (12/26/2024 3:17 PM EDT): Patient was sent to the emergency room by EMS for further evaluation and management Encounters Date Type Department Care Team Description 12/26/2024 2:00 PM EDT Office Visit [facility] [address] [place] [phone] Naima Morton MD Hypertensive urgency 10/25/2024 Patient Outreach [facility] [address] [place] [phone] Christopher Kirkland MD Care Coordination (Outreach) 10/10/2024 Patient Outreach [facility] [address] [place] [phone] Christopher Kirkland MD Care Coordination (C3/CM Outreach) 10/02/2024 Patient Outreach [facility] [address] [place] [phone] Christopher Kirkland MD Care Coordination (Outreach) from Last 3 Months Immunizations Immunization Administration Dates Next Due DT (pediatric) 12/06/2018 Social History Tobacco Use Types Packs/Day Years Used Date Smoking Tobacco: Never Tobacco Cessation:Counseling Given: Not Answered Depression Answer Date Recorded Patient Health Questionnaire-9 Score 2 05/18/2024 Patient Health Questionnaire-9 Score 2 05/18/2024 Last PHQ-9: Questionnaire Data Not on file 1 07/18/2023 Housing Stability Answer Date Recorded What is your housing situation today? I have laura mendoza 05/18/[address] you li ve. Do you have problems with any of the following? None of the above 05/18/2024 Food Insecurity Answer Date Recorded Within the past 12 months, y ou worried that your food would run out before you got money to buy more: Never True 05/18/2024 Within the past 12 months,th e food you bought just didn't last and you didn't have enough money to get more: Never True Transportation Answer Date Recorded In the past 12 months, has l ack of transportation kept you from medical appts, meetings, work or from getting things needed for daily living? No 05/18/2024 Utilities Answer Date Recorded In the past 12 months, has t he electric, gas, oil or water company threatened to shut off services in your home? No 05/18/2024 Depression Answer Date Recorded Patient Health Questionnaire-2 Score 1 05/18/2024 Internet Access Answer Date Recorded Internet Access Q1 No 05/18/2024 Internet Access Q2 I do not want or need it 04/29 Sex and Gender Information Value Date Recorded Sex Assigned at Male 05/16/2024 3:41 PM EST Legal Sex Male 3:52 PM EDT Gender Identity Male 05/16/2024 3:41 PM EST Sexual Orientation Straight 05/16/2024 3: 41 PM EST Last Filed Vital Signs Vital Sign Reading Time Taken Comments Blood Pressure 175/106 12/26/2024 2:02 PM EDT Pulse 83 12/26/2024 2:00 PM EDT Temperature 36.8 C (98.2 F) 12/26/2024 2:00 PM EDT Respiratory Rate - - Oxygen Saturation 99% 12/26/2024 2:00 PM EDT Inhaled Oxygen Concentration - - Weight 74.6 kg (164 lb 6.4 oz) 12/26/2024 2:00 P M EDT Height 170.2 cm (5' 7 ) 12/26/2024 2:00 PM EDT Body Mass Index 25.75 12/26/2024 2:00 PM EDT Plan of Treatment Upcoming Encounters Date Type Department Care Team (Late st Contact Info) Description 01/26/2025 9:30 AM EDT Office Visit [facility] [address] [place] [address] Naima Morton MD [address] [place], [place] [phone] Health Maintenance Due Date Last Done Comments HIV Screening 1984 Lipid Panel 1984 Disability Screening 1984 Family Planning (PISQ) 1999 Hepatitis C Screening 2002 DTaP/Tdap/Td Vaccines (1 - Tdap) 2003 Hepatitis B Vaccines (1 of 3 - 19+ 3-dose series) 2003 COVID-19 Vaccine ( season) 2024 07/22/2023, 03/05/2022, 07/02/2021, Additional history exists Influenza Vaccine (#1) 2025 Alcohol/Substance Use Screening 05/18/2025 05/18/2024 Depression Screening 05/18/2025 05/18/2024, 05/18/20 24 SDOH Screening 05/18/2025 05/18/2024 Tobacco Screening 05/18/2025 05/18/2024 Zoster Vaccines (1 of 2) 2034 RSV Patients and Patients Aged 60 years or older (1 - 1-dose 75+ series) 2059 HIB Vaccines Aged Out No longer eligi ble based on patient's age to complete this topic HPV Vaccines Aged Out No longer eligi ble based on patient's age to complete this topic Hepatitis A Vaccines Aged Out No long er eligible based on patient's age to complete [...] 5 Years) and At-Risk Patients (6 to 49) Years Aged Out No longer eligible based on patient's age to complete this topic RSV under 20 months Aged Out No longe r eligible based on patient's age to complete this topic Rotavirus Vaccines Aged Out No longer eligible based on patient's age to complete this topic Procedures Procedure Name Priority Date/Time Associated Diagnosis Comments HIGH SENSITIVITY TROPONIN I Routine 12/26/2024 4:28 PM EDT Uncomplicated opioid dependence (CMS/HCC) MAGNESIUM Routine 12/26/2024 4:28 PM EDT Uncomplicated opioid dependence (CMS/HCC) COMPREHENSIVE METABOLIC PANEL Routine 12/26/2024 4:28 PM EDT Uncomplicated opioid dependence (CMS/HCC) CBC WITH AUTO DIFFERENTIAL Routine 12/26/2024 4:28 PM EDT Uncomplicated opioid dependence (CMS/HCC) ECG 12-LEAD Routine 12/26/2024 3:17 PM EDT Hypertensive urgency from Last 3 Months Results * High Sensitivity Troponin I (12/26/2024 4:28 PM EDT) [facility] TROPONIN I HIGH SENSITIVITY <2.7 <3.5 - 35.0 ng/L [facility] Comment:The Alegre high sens itivity Troponin-I results should beused in conjunction with other diagnostic information suchas ECG, clinical observations and information, and patientsymptoms to aid in the diagnosis of [place]. 12/26/2024 4:28 PM EDT 12/26/2024 4:31 PM EDT us Generic External Data Provider LAB BLOOD ORDERAB LES Final Result [facility] [address] [place] [phone] * (ABNORMAL) CBC auto differential (12/26/2024 4:28 PM EDT) [facility] White Blood Count 13.0(H) 4.8 - 10.8 X10*3/uL [facility] Red Blood Count 4.95 4.60 - 5.80 X10*6/uL [facility] Hemoglobin 14.6 14.0 - 18.0 g/dl [facility] Hematocrit 42.4 42.0 - 52.0 % [facility] Mean Corpuscular Volume 85.7 80.0 - 98.0 fL [facility] Mean Corpuscular Hemoglobin 29.5 27.0 - 33.0 pg [facility] Mean Corpuscular HGB Conc 34.4 31.0 - 36.0 g/dl [facility] Red Cell Distribution Width 12.7 11.0 - 16.0 % [facility] Platelet Count 266 160 - 400 X10*3/uL [facility] Mean Platelet Volume 10.0 9.4 - 12.4 fL [facility] Neutrophils Percent Auto 66.5 45 - 73 % [facility] Imm Gran Pct Auto 0.5(H) 0.0 - 0.4 % [facility] Lymphocytes Percent Auto 20.3 20 - 40 % [facility] Monocytes Percent Auto 10.7 2 - 11 % [facility] Eosinophils Percent Auto 1.4 0 - 4 % [facility] Basophils Percent Auto 0.6 0 - 2 % [facility] NRBC Pct Auto 0.0 0.0 - 0.2 /100WBC [facility] Neutrophils Absolute Auto 8.7(H) 2.0 - 8.3 x10*3/uL [facility] Imm Gran Abs Auto 0.07(H) 0.00 - 0.03 X10*3/uL [facility] Lymphocytes Absolute Auto 2.6 1.2 - 4.9 X10*3/uL [facility] Monocytes Absolute Auto 1.4(H) 0.1 - 1.2 X10*3/uL [facility] Eosinophils Absolute Auto 0.2 0.0 - 0.4 X10*3/uL [facility] Basophils Absolute Auto 0.1 0.0 - 0.2 X10*3/uL [facility] NRBC Abs Auto 0.000 0.0 - 0.012 X10*3/uL [facility] 12/26/2024 4:28 PM EDT 12/26/2024 4:31 PM EDT Generic External Data Provider LAB BLOOD ORDERAB LES Final Result Performing Organization Address [facility] de Phone Number [facility] [address] [place] [phone] * Magnesium (12/26/2024 4:28 PM EDT) Pathologist [facility] Magnesium 2.4 1.6 - 2.6 mg/dL [facility] 12/26/2024 4:28 PM EDT 12/26/2024 4:31 PM EDT Generic External Data Provider LAB BLOOD ORDERAB LES Final Result Performing Organization Address [facility] de Phone Number [facility] [address] [place] [phone] * (ABNORMAL) Comprehensive Metabolic Panel (12/26/2024 4:28 PM EDT) Pathologist [facility] Sodium 139 135 - 145 mmol/L [facility] Potassium 4.1 3.3 - 5.1 mmol/L [facility] Chloride 103 96 - 108 mmol/L [facility] Carbon Dioxide 28 22 - 29 mmol/L [facility] Anion Gap 12 12 - 20 [facility] Urea Nitrogen (BUN) 8(L) 9 - 16 mg/dL [facility] Creatinine, Serum 0.72 0.5 - 1.4 mg/dL [facility] Creatinine Clr Calc Pharmacy 127.5 [facility] Comment:eGFR (calculated fro m the MDRD study equation) and eCrCl(calculated from the Cockcroft-Gault equation) are based ondifferent parameters and may not yield comparable results.If eCrCl result is absurd, please check patient'sheight/weight. Estimated Glomerular Filt Rate >60 [facility] Comment:Chronic Kidney Disea se: Estimated GFR < 60 mL/min/1.63m4Hvmanl Kidney Disease: Estimated GFR < 15 mL/min/1.73m2 Glucose 98 60 - 115 mg/dL [facility] Calcium 9.2 8.4 - 10.2 mg/dL [facility] Bilirubin, Total 0.3 0.0 - 1.0 mg/dL [facility] Aspartate Amino Transferase 35 5 - 37 U/L [facility] Alanine Aminotransferase 32 0 - 40 U/L [facility] Total Protein 7.6 6.5 - 8.0 g/dL [facility] Albumin Level 4.9 3.5 - 5.0 g/dL [facility] Alkaline Phosphatase 87 39 - 117 U/L [facility] 12/26/2024 4:28 PM EDT 12/26/2024 4:31 PM EDT us Generic External Data Provider LAB BLOOD ORDERAB LES Final Result [facility] [address] [place] [phone] * ECG 12 lead (12/26/2024 3:17 PM EDT) Narrative Naima Morton MD - 12/26/2024 3:17 PM EDT Normal sinus rhythm no ST's changes heart rate 83 us Naima Hyman MD ECG ORDERABLES Final Result from Last 3 Months Insurance [facility] C3 Care Teams [employer] Relationship Specialty Start Date End Date Naima Morton MD [address] [place] [phone] PCP - General Internal Medicine 12/26/24
[2024-12-28 10:18] VITALS: BP 94/57; PULSE 52; RESP 12; TEMP 36.6; O2SAT 95
--- NOTE | 2024-12-28 10:33 | PC.NURSE ---
awaiting results of second troponin, patient continues to rest quietly in room w/ even and unlabored respirations
[2024-12-28 10:45] LABS: Troponin-I High Sensitivity < 2.7 ng/L (<3.5-35.0)
[2024-12-28 12:13] VITALS: BP 94/57; PULSE 52; RESP 12; TEMP 36.6; O2SAT 95
== END 2024-12-28 12:24 | disposition home or self-care (01) ==
PROVIDERS: Emergency Provider Emergency Medicine Emergency Medical Services
DX: R07.89 Other chest pain (principal); F14.10 Cocaine abuse, uncomplicated; Z51.81 Encounter for therapeutic drug level monitoring; Z79.899 Other long term (current) drug therapy
CPT/HCPCS: 36415; 71045; 80048; 80307; 84484; 85025; 93005; 99285

== ENCOUNTER → 2024-12-28 07:09 | Outpatient (BNV) | payer MEDICAID, SELFPAY | PROVIDERS: Emergency Provider Emergency Medicine Emergency Medical Services; Visit Provider Internal Medicine Cardiovascular Disease | DX: R07.9 Chest pain, unspecified (principal) | CPT/HCPCS: 93010 ==

== ENCOUNTER → 2024-12-28 07:43 | Outpatient (BNV) | payer MEDICAID, SELFPAY | PROVIDERS: Emergency Provider Emergency Medicine Emergency Medical Services; Visit Provider Radiology Diagnostic Radiology | DX: J98.4 Other disorders of lung (principal) | CPT/HCPCS: 71045 ==

== ENCOUNTER 2025-03-28 00:49 | Emergency (ER) | payer MEDICAID, SELFPAY ==
[2025-03-28 00:57] VITALS: BP 170/105; PULSE 93; RESP 18; TEMP 36.6; O2SAT 95; BMI 26.5
--- NOTE | 2025-03-28 01:03 | ECG_ITS ---
Test Reason : MED CLEARANCE Blood Pressure : */* mmHG Vent. Rate : 80 BPM Atrial Rate : 80 BPM P-R Int : 146 ms QRS Dur : 98 ms QT Int : 374 ms P-R-T Axes : 50 26 37 degrees QTcB Int : 431 ms Normal sinus rhythm Normal ECG When compared with ECG of 28-Dec-2024 07:08, No significant change was found Referred By: Generic ED Physician Electronically Signed By: CHARISSE ROWE
--- NOTE | 2025-03-28 01:08 | PC.NURSE ---
charge manager notified of Ah/VH. patient is currently being changed over by security and glue jointer feeder and will be brought to pod. report given to Nikolay LAMAR.
--- NOTE | 2025-03-28 01:44 | PC.NURSE ---
Assumed care of pt, presents with auditory hallucinations, states the voice that he hearing are deities and that he hearing other peoples thought, the voices are not telling to harm himself, denies visual hallucinations, pt states he smoke cocaine and snored fentanyl, pt also endorses drinking alcohol 7-8 nips, pt states that he was switched from Seroquel to Thorazine, aao4,
--- NOTE | 2025-03-28 01:44 | ED.PSYCH ---
HPI - Psych General Chief Complaint: Psychiatric Symptoms Stated Complaint: needs medication Time Seen by Provider: 03/28/25 01:42 Source: patient Mode of arrival: ambulatory Limitations: no limitations History of Present Illness ED Provider: Dr. Norma Betancourt HPI Narrative: 40-year-old male with history of polysubstance use, schizoaffective disorder presenting with paranoia, auditory and visual hallucinations, intermittent medication noncompliance as well as polysubstance use. Patient admits to using cocaine, fentanyl and alcohol prior to arrival. Admits he drinks about 8-10 nips per day and has been doing this for the last couple of weeks. Admits that he will withdrawal from alcohol if he stops drinking. He does not currently feel like he is in withdrawal. Last use of alcohol was immediately prior to arrival in the emergency department. Admits that he was recently switched to Thorazine to help with insomnia and admits that it does help him but he has been taking it sporadically. Uses cocaine by smoking it. Uses fentanyl by snorting it. Denies other illicit substance use. Describes visual hallucinations and auditory hallucinations as ?speaking to different entities and having conversations with them . Related Data Home Medications ?Medication ?Instructions ?Recorded ?Confirmed buprenorphine 8 mg-naloxone 2 mg 2 film buccal BID 07/20/24 07/20/24 sublingual film (Suboxone) Previous Rx's ?Medication ?Instructions ?Recorded clonidine HCl 0.1 mg tablet 0.1 mg PO BID withdrawal #14 tabs 12/26/24 Allergies Allergy/AdvReac Type Severity Reaction Status Date / Time haloperidol (From Haldol) Allergy Involuntary Verified 03/28/25 01:01 Spasms olanzapine (From Zyprexa) Allergy Involuntary Verified 03/28/25 01:01 Spasms Review of Systems Review of Systems: as per HPI, full review of systems performed and negative but for the above mentioned pertinent positives and negatives. [facility], [facility] Social History Social History Alcohol intake: current Alcohol intake frequency: 3 or more drinks per day Smoked in Last 30 Days: No Use of substances other than those prescribed or required for medical reasons: Yes Substance Use Type: Crack/Cocaine and Opiates Substance Use Type Other:: Fentanyl Advance Directives: No Advance Directives Information Provided: Yes Do you have a plan to hurt others: No Plan Physical Exam Exam: Exam: GENERAL: Unkempt, no acute distress. SKIN: Normal skin color for ethnicity, diaphoretic, no rashes noted. HEENT: Normocephalic, atraumatic, no stridor, posterior oropharynx nonerythematous, dentition intact, EOMI. NECK: Soft, supple, full ROM, midline structures nontender, no step-offs, no deformities, no lymphadenopathy. CHEST: Heart regular tachycardia, no murmurs, symmetric chest rise and fall. PULMONARY: Clear to auscultation bilaterally, no labored breathing, no wheezes/rhales/ rhonchi. ABDOMINAL: Soft, nondistended, nontender, positive bowel sounds in all quadrants. : Deferred. MUSCULOSKELETAL: Normal tone, full range of motion, no deformities, no peripheral edema. NEURO: Alert and oriented x3, CN II through XII intact, equal strength and sensation bilateral upper and lower extremities, no focal neurologic deficits. PSYCHIATRIC: Flat affect, poor eye contact, withdrawn Vital Signs: Vital Signs: Last Vital Signs Temp 98 F 03/28/25 00:57 Pulse 93 03/28/25 00:57 Resp 18 03/28/25 00:57 BP 170/105 H 03/28/25 00:57 Pulse Ox 95 03/28/25 00:57 O2 Del Method Room Air 03/28/25 00:57 BMI result Body Mass Index 26.5 Course Course Course Narrative: 7:53 AM 03/28/2025 (Dr. Randal Akers) Patient in physician observation for psychiatric evaluation.? No acute events reported overnight. Reevaluation(s) Reevaluation #1: Time: 13:04 Date: 03/28/25 Provider: Randal Akers DO Physician observation ended Patient has been cleared for discharge by the CARE team. Time: 13:04 Medications Administered Discontinued Medications Generic Name Dose Route Start Last Admin Trade Name Freq PRN Reason Stop Dose Admin Lorazepam 2 mg 03/28/25 06:32 03/28/25 11:40 Lorazepam 1 Mg Tablet PO 03/28/25 06:33 Not Given ONCE ONE Medical Decision Making Medical Decision Making MDM Narrative: Patient presents with psychologic complaints. Differential diagnosis includes suicidal ideations, homicidal ideations, depression, anxiety, mood disorder, decompensated mental illnesses such as schizophrenia or bipolar disorder, medication noncompliance, among many others. Medical clearance protocol was initiated. Patient given a dose of lorazepam to avoid alcohol withdrawal, help with rest. Differential Diagnosis Differential Diagnoses: The differential diagnosis associated with the presentation includes (As above) Admission/Observation Consideration of admission/observation: Escalation of care including admission/observation considered Consult Healthcare Provider Management of the patient was discussed with: Behavioral Health Provider Lab Data MDM Lab Attestation statement: I reviewed the patient's lab results. 03/28/25 01:53 03/28/25 01:53 Labs: Lab Results 03/28/25 03/28/25 Range/Units 01:53 01:54 WBC 11.8 H (4.8-10.8) X10*3/uL RBC 4.85 (4.60-5.80) X10*6/uL Hgb 14.2 (14.0-18.0) g/dl Hct 41.2 L (42.0-52.0) % MCV 84.9 (80.0-98.0) fL MCH 29.3 (27.0-33.0) pg MCHC 34.5 (31.0-36.0) g/dl RDW 12.3 (11.0-16.0) % Plt Count 258 (160-400) X10*3/uL MPV 9.8 (9.4-12.4) fL Immature Gran % (Auto) 0.5 H (0.0-0.4) % Neut % (Auto) 61.3 (45-73) % Lymph % (Auto) 24.6 (20-40) % [place] % (Auto) 11.9 H (2-11) % Eos % (Auto) 1.3 (0-4) % Baso % (Auto) 0.4 (0-2) % Lymph # (Auto) 2.9 (1.2-4.9) X10*3/uL [place] # (Auto) 1.4 H (0.1-1.2) X10*3/uL Eos # (Auto) 0.2 (0.0-0.4) X10*3/uL Baso # (Auto) 0.1 (0.0-0.2) X10*3/uL Abs Immat Gran (auto) 0.06 H (0.00-0.03) X10*3/uL Absolute Neuts (auto) 7.2 (2.0-8.3) x10*3/uL Absolute Nucleated RBC 0.000 (0.0-0.012) X10*3/uL Nucleated RBC % (auto) 0.0 (0.0-0.2) /100WBC Sodium 139 (135-145) mmol/L Potassium 3.9 (3.3-5.1) mmol/L Chloride 103 (96-108) mmol/L Carbon Dioxide 25 (22-29) mmol/L Anion Gap 15 (12-20) BUN 23 H (9-16) mg/dL Creatinine 0.70 (0.5-1.4) mg/dL Estim Creat Clear Calc 129.8 Estimated GFR > 60 Random Glucose 106 (60-115) mg/dL Calcium 9.0 (8.4-10.2) mg/dL Magnesium 2.1 (1.6-2.6) mg/dL Total Bilirubin 0.2 (0.0-1.0) mg/dL AST 25 (5-37) U/L ALT 30 (0-40) U/L Alkaline Phosphatase 81 (39-117) U/L Troponin I High Sens < 2.7 (<3.5-35.0) ng/L Total Protein 7.5 (6.5-8.0) g/dL Albumin 4.7 (3.5-5.0) g/dL Urine Color Yellow Urine Appearance Clear Urine pH 5.5 (5.0-9.0) Ur Specific [place] 1.015 (1.005-1.025) Urine Protein Negative (Neg-Trace) mg/dL Urine Glucose (UA) Negative (Negative) mg/dL Urine Ketones Negative (Negative) mg/dL Urine Blood Trace H (Negative) Urine Nitrite Negative (Negative) Ur Leukocyte Esterase Negative (Negative) Urine RBC 0-2 (0-2) /HPF Urine WBC 0-5 (0-5) /HPF Ur Squamous Epith Cells 0-2 (0-2) /HPF Urine Bacteria None Seen (None Seen) Hyaline Casts 0-2 (0-2) /LPF Salicylates < 5.0 L (15-30) mg/dL Urine Opiates Screen POSITIVE H (Not Detect) Ur Buprenorphine Scrn Positive H (Not Detect) ng/mL Ur Oxycodone Screen Not Detected (Not Detect) ng/mL Urine Methadone Screen Not Detected (Not Detect) ng/mL Urine Fentanyl Screen POSITIVE H (Not Detect) Acetaminophen < 3 (<30) mcg/mL Ur Barbiturates Screen Not Detected (Not Detect) Ur Phencyclidine Scrn Not Detected (Not Detect) Ur Amphetamines Screen Not Detected (Not Detect) U Benzodiazepines Scrn Not Detected (Not Detect) Urine Cocaine Screen POSITIVE H (Not Detect) U Marijuana (THC) Screen POSITIVE H (Not Detect) Ethyl Alcohol < 10 mg/dL Independent Interpretation I performed an independent interpretation of an: EKG Interpretation: My independent interpretation of the ECG reveals normal sinus rhythm with rate of 80, normal axis, normal intervals, no ST elevations or depressions to suggest ischemic changes, relatively unchanged from previous on 12/28/2024. Social Determinants Patient?s care significantly limited by Social Determinants of Health including: Alcoholism and drug addiction in family and Other Social Determinant of Health Discharge Plan Discharge Clinical Impression: Acute psychosis, Polysubstance use disorder Patient Disposition: Home, Self-Care Additional Instructions: You were seen in our Emergency Department today for treatment of a behavioral health issue. It is important after your visit that you follow up with either your behavioral health provider or a primary care doctor within 7 days.? If you have trouble finding a therapist you can reach out to [address] [phone] The National Suicide and Crisis Lifeline can be reached 7 days a week 24 hours a day.? Call 988 to speak with someone.? Return for any worsening symptoms or concerns such as thoughts of self harm or harm to others. Please call 911 if you feel your mental health is worsening.? Prescriptions: No Action buprenorphine-naloxone [Suboxone] 8-2 mg Film 2 film BUCCAL BID Rx Instructions: place 1 film on inside of (each) cheek clonidine HCl 0.1 mg tablet 0.1 mg PO BID Qty: 14 0RF Interventions: [place]-Suicide Risk Severity Scale Last Done: 03/28/25 02:01 Print Language: Hebrew
--- OUTSIDE RECORDS SUMMARY | 2025-03-28 01:59 | XMS_ITS | Clinical Summary ---
Author Organization [facility] Address [address] [place] [address] Care Team Providers Care Lead Vulcanizing Operator Name Role Phone Jose Daniel Young Primary Care Provider [phone] Allergies Active Allergy Reactions Criticality Noted Date [...] Health Maintenance Due Date Last Done Comments Hepatitis C Screening 2002 Periodic Health Exam 2002 Tetanus Diphtheria and Pertussis Vaccines (TD and TDaP) (1 - Tdap) 2003 Influenza (Seasonal) 01/26/2025 CoVid-19 Vaccine (4 - 2024-2 6 season) 2025 07/02/2021, 11/19/2020, 10/22/2020 HIB Vaccines Aged Out No longer eligi [...] age to complete this topic Insurance MEDICAID [place] CHOICE Care Teams Lead Vulcanizing Operator Relationship Specialty Start Date End Date Jose Daniel Young [address] [place] [phone] PCP - General 10/12/21
--- OUTSIDE RECORDS SUMMARY | 2025-03-28 02:00 | XMS_ITS | Clinical Summary ---
Author Organization [facility] Address [address] [place], [place] [id number] Care Team Providers Care Realtime Reporter Name Role Phone Jose Daniel Young Primary Care Provider [phone] Allergies Active Allergy Reactions Criticality Noted Date Comments Cariprazine 11/26/2020 Haloperidol Other (See Comments) 10/12/2021 Per pt tardive Dyskinesia Olanzapine 11/26/2020 Medications propranoloL (INDERAL) 10 MG tablet Take 10 mg by mouth 3 times daily. 10/12/2021 Active QUEtiapine (SEROquel) 50 MG tablet Take 50 mg by mouth daily. 10/12/2021 Active cloNIDine (CATAPRES) 0.1 MG tablet Take 0.1 mg by mouth 2 times daily. 10/12/2021 Active gabapentin (NEURONTIN) 300 MG capsule Take 300 mg by mouth 3 times daily. 10/12/2021 Active lamoTRIgine (LaMICtal) 25 MG tablet Take 50 mg by mouth daily. 10/12/2021 Active QUEtiapine (SEROquel) 300 MG tablet Take 300 mg by mouth daily. 10/12/2021 Active Active Problems Problem Noted Date Diagnosed Date Schizoaffective disorder, bipolar type 2 Social History Tobacco Use Types Packs/Day Years Used Date Smoking Tobacco: Never Assessed Sex and Gender Information Value Date Recorded Sex Assigned at Not on file Legal Sex Male 6:22 PM EST Gender Identity Not on file Sexual Orientation Not on file Plan of Treatment Health Maintenance Due Date Last Done Comments Blood Pressure 1984 Lipid Panel 1984 Depression Screening 1988 Hepatitis C Screening 2002 DTaP,Tdap,and Td Vaccines (1 - Tdap) 2003 COVID-19 Vaccine (2023-2 5 season) 2025 Influenza Vaccine (#1) 2025 Meningococcal B Vaccines Aged Out No longer eligible based on patient's age to complete this topic Meningococcal Vaccines Aged Out No lo nger eligible based on patient's age to complete this topic Pneumococcal Vaccine Aged Out No long er eligible based on patient's age to complete this topic Care Teams Realtime Reporter Relationship Specialty Start Date End Date Jose Daniel Young DO [address] [place] [address] PCP - General 10/12/21
--- OUTSIDE RECORDS SUMMARY | 2025-03-28 02:00 | XMS_ITS | Encounter Summary ---
Author Organization [employer] Address [address] [place] [address] Care Team Providers Care Subway Car Repairer Name Role Phone Naima Morton MD Primary Care Provide r Dejan Sims RN Unavailable [phone] Marlin Karimi Unavailable Encounter Details Date Type Department Care Team (Late st Contact Info) Description 07/05/2024 Orders Only [facility] MEDICINE [address] [place] [address] Twyla Banks RN Uncomplicated opioid dependence (CMS/HCC) Social History Tobacco Use Types Packs/Day Years Used Date Smoking Tobacco: Never Depression Answer Date Recorded Patient Health Questionnaire-9 Score 2 05/18/2024 Patient Health Questionnaire-9 Score 2 05/18/2024 Last PHQ-9: Questionnaire Data Not on file 1 07/18/2023 Housing Stability Answer Date Recorded What is your housing situation today? I have laurazahra mendoza 05/18/[address] you [...] Orientation Straight 05/16/2024 3: 41 PM EST documented as of this encounter Plan of Treatment Scheduled Orders Name Type Priority Associated Diagnoses Orde r Schedule Hepatic Function Panel Lab Routine Uncomplicated opioid dependence (CMS/HCC) Expected: 07/05/2024 (Approximate), Expires: 07/05/2025 Hepatitis A Antibody, Total Lab Routine Uncomplicated opioid dependence (CMS/HCC) Expected: 07/05/2024 (Approximate), Expires: 07/05/2025 Hepatitis B Core Antibody, Total Lab Routine Uncomplicated opioid dependence (CMS/HCC) Expected: 07/05/2024 (Approximate), Expires: 07/05/2025 Hepatitis B Surface Antibody, Qualitative Lab Routine Uncomplicated opioid dependence (CMS/HCC) Expected: 07/05/2024 (Approximate), Expires: 07/05/2025 Hepatitis B surface antigen, EIA Lab Routine Uncomplicated opioid dependence (CMS/HCC) Expected: 07/05/2024 (Approximate), Expires: 07/05/2025 Hepatitis C Antibody with Reflex to HCV, RNA, Quantitative, Real-Time PCR Lab Routine Uncomplicated opioid dependence (CMS/HCC) Expected: 07/05/2024 (Approximate), Expires: 07/05/2025 HIV-1/2 Antigen and Antibodies, Fourth Generation, with Reflexes Lab Routine Uncomplicated opioid dependence (CMS/HCC) Expected: 07/05/2024 (Approximate), Expires: 07/05/2025 Syphilis Screen Lab Routine Uncomplicated opioid dependence (CMS/HCC) Expected: 07/05/2024 (Approximate), Expires: 07/05/2025 T-SPOT .TB Lab Routine Uncomplicated opioid dependence (CMS/HCC) Expected: 07/05/2024 (Approximate), Expires: 07/05/2025 documented as of this encounter Procedures Procedure Name Priority Date/Time Associated Diagnosis Comments HIGH SENSITIVITY TROPONIN I Routine 12/26/2024 4:28 PM EDT Uncomplicated opioid dependence (CMS/HCC) CBC WITH AUTO DIFFERENTIAL Routine 12/26/2024 4:28 PM EDT Uncomplicated opioid dependence (CMS/HCC) MAGNESIUM Routine 12/26/2024 4:28 PM EDT Uncomplicated opioid dependence (CMS/HCC) COMPREHENSIVE METABOLIC PANEL Routine 12/26/2024 4:28 PM EDT Uncomplicated opioid dependence (CMS/HCC) DRUG MONITOR, PANEL 1, SCREEN, URINE Routine 07/20/2024 8:25 AM EST Uncomplicated opioid dependence (CMS/HCC) ETHANOL Routine 07/20/2024 5:38 AM EST Uncomplicated opioid dependence (CMS/HCC) ACETAMINOPHEN LEVEL Routine 07/20/2024 5 :38 AM EST Uncomplicated opioid dependence (CMS/HCC) SALICYLATE Routine 07/20/2024 5:38 AM EST Uncomplicated opioid dependence (CMS/HCC) COMPREHENSIVE METABOLIC PANEL Routine 07/20/2024 5:38 AM EST Uncomplicated opioid dependence (CMS/HCC) documented in this encounter Results * High Sensitivity Troponin I (12/26/2024 4:28 PM EDT) TROPONIN I HIGH SENSITIVITY <2.7 <3.5 - 35.0 ng/L [facility] Comment:The Alegre high sens itivity Troponin-I results should beused in conjunction with other diagnostic information suchas ECG, clinical observations and information, and patientsymptoms to aid in the diagnosis of AL. 12/26/2024 4:28 PM EDT 12/26/2024 4:31 PM EDT us Generic External Data Provider LAB BLOOD ORDERAB LES Final Result [facility] [address] [place] [phone] * Magnesium (12/26/2024 4:28 PM EDT) Magnesium 2.4 1.6 - 2.6 mg/dL [facility] 12/26/2024 4:28 PM EDT 12/26/2024 4:31 PM EDT us Generic External Data Provider LAB BLOOD ORDERAB LES Final Result [facility] [address] [place] [address] [phone] * (ABNORMAL) Comprehensive Metabolic Panel (12/26/2024 4:28 PM EDT) Sodium 139 135 - 145 mmol/L [facility] Potassium 4.1 3.3 - 5.1 mmol/L [facility] Chloride 103 96 - 108 mmol/L [facility] Carbon Dioxide 28 22 - 29 mmol/L [facility] Anion Gap 12 12 - 20 [facility] Urea Nitrogen (BUN) 8(L) 9 - 16 mg/dL [facility] Creatinine, Serum 0.72 0.5 - 1.4 mg/dL [facility] Creatinine Clr Calc Pharmacy 127.5 [facility] Comment:eGFR (calculated fro m the MDRD study equation) and eCrCl(calculated from the Cockcroft-Gault equation) are based ondifferent parameters and may not yield comparable results.If eCrCl result is absurd, please check patient'sheight/weight. Estimated Glomerular Filt Rate >60 [facility] Comment:Chronic Kidney Disea se: Estimated GFR < 60 mL/min/[id number] Kidney Disease: Estimated GFR < 15 mL/min/1.73m2 Glucose 98 60 - 115 mg/dL [facility] Calcium 9.2 8.4 - 10.2 mg/dL [facility] Bilirubin, Total 0.3 0.0 - 1.0 mg/dL [facility] Aspartate Amino Transferase 35 5 - 37 U/L [facility] Alanine Aminotransferase 32 0 - 40 U/L [facility] Total Protein 7.6 6.5 - 8.0 g/dL [facility] Albumin Level 4.9 3.5 - 5.0 g/dL [facility] Alkaline Phosphatase 87 39 - 117 U/L [facility] 12/26/2024 4:28 PM EDT 12/26/2024 4:31 PM EDT us Generic External Data Provider LAB BLOOD ORDERAB LES Final Result [facility] [address] [place] [phone] * (ABNORMAL) CBC auto differential (12/26/2024 4:28 PM EDT) White Blood Count 13.0(H) 4.8 - 10.8 X10*3/uL [facility] Red Blood Count 4.95 4.60 - 5.80 X10*6/uL [facility] Hemoglobin 14.6 14.0 - 18.0 g/dl [facility] Hematocrit 42.4 42.0 - 52.0 % [facility] Mean Corpuscular Volume 85.7 80.0 - 98.0 fL [facility] Mean Corpuscular Hemoglobin 29.5 27.0 - 33.0 pg [facility] Mean Corpuscular HGB Conc 34.4 31.0 - 36.0 g/dl [facility] Red Cell Distribution Width 12.7 11.0 - 16.0 % [facility] Platelet Count 266 160 - 400 X10*3/uL [facility] Mean Platelet Volume 10.0 9.4 - 12.4 fL [facility] Neutrophils Percent Auto 66.5 45 - 73 % [facility] Imm Gran Pct Auto 0.5(H) 0.0 - 0.4 % [facility] Lymphocytes Percent Auto 20.3 20 - 40 % [facility] Monocytes Percent Auto 10.7 2 - 11 % [facility] Eosinophils Percent Auto 1.4 0 - 4 % [facility] Basophils Percent Auto 0.6 0 - 2 % [facility] NRBC Pct Auto 0.0 0.0 - 0.2 /100WBC [facility] Neutrophils Absolute Auto 8.7(H) 2.0 - 8.3 x10*3/uL [facility] Imm Gran Abs Auto 0.07(H) 0.00 - 0.03 X10*3/uL [facility] Lymphocytes Absolute Auto 2.6 1.2 - 4.9 X10*3/uL [facility] Monocytes Absolute Auto 1.4(H) 0.1 - 1.2 X10*3/uL [facility] Eosinophils Absolute Auto 0.2 0.0 - 0.4 X10*3/uL [facility] Basophils Absolute Auto 0.1 0.0 - 0.2 X10*3/uL [facility] NRBC Abs Auto 0.000 0.0 - 0.012 X10*3/uL [facility] 12/26/2024 4:28 PM EDT 12/26/2024 4:31 PM EDT us Generic External Data Provider LAB BLOOD ORDERAB LES Final Result [facility] [address] [place] [phone] * (ABNORMAL) Drug Monitoring, Panel 1, Screen, Urine (07/20/2024 8:25 AM EST) Pathologist [facility] Opiate Screen Urine Not Detected Not Detect [facility] Comment:Opiate cut-off is 30 0 ng/mL.Positive results are unconfirmed and should not be used fornon-medical purposes. Barbiturates, Urine Not Detected Not Detect [facility] Comment:Barbiturate cut-off is 200 ng/mL.Positive results are unconfirmed and should not be used fornon-medical purposes. Phencyclidine Screen Urine Not Detected Not Detect [facility] Comment:Phencyclidine cut-of f is 25 ng/mL.Positive results are unconfirmed and should not be used fornon-medical purposes. Amphetamine Screen Urine Not Detected Not Detect [facility] Comment:Amphetamine cut-off is 1000 ng/mL.Positive results are unconfirmed and should not be used fornon-medical purposes. Benzodiazepines Screen Urine Not Detected Not Detect [facility] Comment:Benzodiazepine cut-o ff is 200 ng/mL.Positive results are unconfirmed and should not be used fornon-medical purposes. Cocaine Screen Urine POSITIVE(A) Not Detect [facility] Comment:Cocaine cut-off is 3 00 ng/mL.Positive results are unconfirmed and should not be used fornon-medical purposes. Cannabinoid Screen Urine POSITIVE(A) Not Detect [facility] Comment:Cannabinoid cut-off is 50 ng/mL.Positive results are unconfirmed and should not be used fornon-medical purposes. Methadone Screen, Urine Not Detected Not Detect ng/mL [facility] Comment:Methadone cut-off is 300 ng/mL.Positive results are unconfirmed and should not be used fornon-medical purposes. FENTANYL URINE Not Detected Not Detect [facility] Comment:Fentanyl cut-off is 1 ng/mL.Positive results are unconfirmed and should not be used fornon-medical purposes. Oxycodone Urine Screen Not Detected Not Detect ng/mL [facility] Comment:Oxycodone cut-off is 100 ng/mL.Positive results are unconfirmed and should not be used fornon-medical purposes. Buprenorphine Screen Positive(A) Not Detect ng/mL [facility] Comment:Buprenorphine cut-of f is 5 ng/mL.Positive results are unconfirmed and should not be used fornon-medical purposes. 07/20/2024 8:25 AM EST 07/20/2024 8:28 AM EST us Generic External Data Provider LAB URINE ORDERAB LES Final Result [facility] [address] [place] [address] [phone] * Acetaminophen level (07/20/2024 5:38 AM EST) Acetaminophen LAB <3 <30 mcg/mL [facility] 07/20/2024 5:38 AM EST 07/20/2024 5:41 AM EST Generic External Data Provider LAB BLOOD ORDERAB LES Final Result Performing Organization Address [facility] Co de Phone Number [facility] [address] [place] [phone] * (ABNORMAL) Salicylate (07/20/2024 5:38 AM EST) Salicylate <5.0(L) 15 - 30 mg/dL [facility] 07/20/2024 5:38 AM EST 07/20/2024 5:41 AM EST Generic External Data Provider LAB BLOOD ORDERAB LES Final Result Performing Organization Address [facility] Co de Phone Number [facility] [address] [place] [phone] * Ethanol (07/20/2024 5:38 AM EST) Pathologist [facility] ETHANOL (MG/DL) IN SER/PLAS <10 mg/dL [facility] Comment:Serum/plasma ethanol results are to be used formedical/treatment purposes only. 07/20/2024 5:38 AM EST 07/20/2024 5:41 AM EST Generic External Data Provider LAB BLOOD ORDERAB LES Final Result Performing Organization Address [facility] de Phone Number [facility] [address] [place] [phone] * (ABNORMAL) Comprehensive Metabolic Panel (07/20/2024 5:38 AM EST) Pathologist [facility] Sodium 141 135 - 145 mmol/L [facility] Potassium 3.8 3.3 - 5.1 mmol/L [facility] Chloride 109(H) 96 - 108 mmol/L [facility] Carbon Dioxide 24 22 - 29 mmol/L [facility] Anion Gap 12 12 - 20 [facility] Urea Nitrogen (BUN) 21(H) 9 - 16 mg/dL [facility] Creatinine, Serum 0.75 0.5 - 1.4 mg/dL [facility] Creatinine Clr Calc Pharmacy 122.4 [facility] Comment:eGFR (calculated fro m the MDRD study equation) and eCrCl(calculated from the Cockcroft-Gault equation) are based ondifferent parameters and may not yield comparable results.If eCrCl result is absurd, please check patient'sheight/weight. Estimated Glomerular Filt Rate >60 [facility] Comment:Chronic Kidney Disea se: Estimated GFR < 60 mL/min/[id number] Kidney Disease: Estimated GFR < 15 mL/min/1.73m2 Glucose 140(H) 60 - 115 mg/dL [facility] Calcium 8.9 8.4 - 10.2 mg/dL [facility] Bilirubin, Total 0.3 0.0 - 1.0 mg/dL [facility] Aspartate Amino Transferase 30 5 - 37 U/L [facility] Alanine Aminotransferase 25 0 - 40 U/L [facility] Total Protein 6.7 6.5 - 8.0 g/dL [facility] Albumin Level 4.0 3.5 - 5.0 g/dL [facility] Alkaline Phosphatase 83 39 - 117 U/L [facility] 07/20/2024 5:38 AM EST 07/20/2024 5:41 AM EST us Generic External Data Provider LAB BLOOD ORDERAB LES Final Result [facility] [address] [place] [phone] [phone] documented in this encounter Visit Diagnoses Diagnosis Uncomplicated opioid dependence (CMS/HCC) (HCC) documented in this encounter Additional Health Concerns Assessment Noted Time PHQ-9 Depression Total Score: 2 05/18/20 24 2:30 PM EST documented as of this encounter Care Teams Subway Car Repairer Relationship Specialty Start Date End Date Naima Morton MD [address] [place] [address] PCP - General Internal Medicine 12/26/24 Dejan Sims RN [address] [place] [address] Registered Nurse Family Medicine 03/12/25 Marlin Karimi 03/12/25 documented as of this encounter
--- OUTSIDE RECORDS SUMMARY | 2025-03-28 02:00 | XMS_ITS ---
Author Organization [employer] Address [address] [place] [address] [address] [place] [address] Care Team Providers Care Management Liaison Name Role Phone Naima Morton MD Primary Care Provide r Dejan Sims RN Unavailable [phone] Marlin Karimi Unavailable CHW Complex Status:Outreach In Progress (Enrolling) Start date:03/12/2025 Enrollment reason:ADT Feed Overview ED- Pt went to [facility] on 03/11/25. Please outreach for enrollment. Case Team Name Relationship Phone Marlin Karimi(Responsible Staff) [phone] Continued Care and Services Coordination
--- OUTSIDE RECORDS SUMMARY | 2025-03-28 02:00 | XMS_ITS ---
Author Organization [employer] Address [address] [place] [address] [address] [place] [address] Care Team Providers Care Product Manager Financial Services Name Role Phone Naima Morton MD Primary Care Provide r Dejan Sims RN Unavailable [phone] Marlin Karimi Unavailable CM Complex Status:Outreach In Progress (Enrolling) Start date:03/12/2025 Enrollment reason:ADT Feed Overview ED- Pt went to [facility] on 03/11/25. Case Team Name Relationship Phone Dejan Sims RN(Responsible Staff) Registered Nurse [phone] Continued Care and Services Coordination
--- OUTSIDE RECORDS SUMMARY | 2025-03-28 02:00 | XMS_ITS | Clinical Summary ---
Author Organization [employer] Address [address] [facility] [address] [place] [address] Care Team Providers Care Acetylene Burner Name Role Phone Naima Morton MD Primary Care Provide r Dejan Sims RN Unavailable [phone] Marlni Karimi Unavailable Allergies No known active allergies Medications * [...] Encounters Date Type Department Care Team Description 03/15/2025 Patient Outreach [facility] [address] [place] [phone] Naima Morton MD Care Coordination (CM/CHW outreach) 03/12/2025 Patient Outreach [facility] [address] [place] [address] [phone] Naima Morton MD Care Coordination (CHW chart review) 03/12/2025 Patient Outreach [facility] [address] [place] [address] [phone] Naima Morton MD Care Management ([facility]- chart review) 03/12/2025 Patient Outreach [facility] [address] [place] [address] [phone] Naima Morton MD 01/25/2025 Telephone [facility] [address] [place] [address] Naima Morton MD Chart Prep 12/26/2024 2:00 PM EDT Office Visit [facility] [address] [place] [address] Naima Morton MD Hypertensive urgency from Last 3 Months Immunizations Immunization Administration [...] your housing situation today? I have laura reji 05/18/[address] you li [...] 12/26/2024 2:00 PM EDT Plan of Treatment Health Maintenance Due Date Last Done Comments HIV Screening 1984 Lipid Panel 1984 Disability Screening 1984 Family Planning (PISQ) 1999 HPV Vaccines (1 - Male 3-dose series) 1999 Hepatitis C Screening 2002 Hepatitis B Vaccines (1 of 3 - 19+ 3-dose series) 2003 DTaP/Tdap/Td Vaccines (1 - Tdap) 12/07/2018 12/06/2018 COVID-19 Vaccine ( season) 2025 07/22/2023, 03/05/2022, 07/02/2021, Additional history exists Influenza [...] 12/26/2024 4:28 PM EDT Uncomplicated opioid dependence ([facility]) COMPREHENSIVE METABOLIC PANEL Routine 12/26/2024 4:28 PM EDT Uncomplicated opioid dependence ([facility]) CBC WITH AUTO DIFFERENTIAL Routine 12/26/2024 4:28 PM EDT Uncomplicated opioid dependence ([facility]) ECG 12-LEAD Routine 12/26/2024 3:17 PM EDT Hypertensive urgency from Last 3 Months Results * High Sensitivity Troponin I (12/26/2024 4:28 PM EDT) TROPONIN I HIGH SENSITIVITY <2.7 <3.5 - 35.0 ng/L [facility] Comment:The Alegre high sens itivity Troponin-I results should beused in conjunction with other diagnostic information suchas ECG, clinical observations and information, and patientsymptoms to aid in the diagnosis of [place]. 12/26/2024 4:28 PM EDT 12/26/2024 4:31 PM EDT us Generic External Data Provider LAB BLOOD ORDERAB LES Final Result [facility] [address] [place] [phone] * (ABNORMAL) CBC auto differential (12/26/2024 4:28 PM EDT) White Blood Count 13.0(H) 4.8 - 10.8 X10*3/uL [facility] Red Blood Count 4.95 4.60 - 5.80 X10*6/uL [facility] Hemoglobin 14.6 14.0 - 18.0 g/dl [facility] Hematocrit 42.4 42.0 - 52.0 % [facility] Mean Corpuscular Volume 85.7 80.0 - 98.0 fL [facility] Mean Corpuscular Hemoglobin 29.5 27.0 - 33.0 pg [facility] Mean Corpuscular HGB Conc 34.4 31.0 - 36.0 g/dl [facility] Red Cell Distribution Width 12.7 11.0 - 16.0 % [facility] Platelet Count 266 160 - 400 X10*3/uL [facility] Mean Platelet Volume 10.0 9.4 - 12.4 fL [facility] Neutrophils Percent Auto 66.5 45 - 73 % [facility] Imm Gran Pct Auto 0.5(H) 0.0 - 0.4 % [facility] Lymphocytes Percent Auto 20.3 20 - 40 % [facility] Monocytes Percent Auto 10.7 2 - 11 % [facility] Eosinophils Percent Auto 1.4 0 - 4 % [facility] Basophils Percent Auto 0.6 0 - 2 % [facility] NRBC Pct Auto 0.0 0.0 - 0.2 /100WBC [facility] Neutrophils Absolute Auto 8.7(H) 2.0 - 8.3 x10*3/uL [facility] Imm Gran Abs Auto 0.07(H) 0.00 - 0.03 X10*3/uL [facility] Lymphocytes Absolute Auto 2.6 1.2 - 4.9 X10*3/uL [facility] Monocytes Absolute Auto 1.4(H) 0.1 - 1.2 X10*3/uL [facility] Eosinophils Absolute Auto 0.2 0.0 - 0.4 X10*3/uL [facility] Basophils Absolute Auto 0.1 0.0 - 0.2 X10*3/uL [facility] NRBC Abs Auto 0.000 0.0 - 0.012 X10*3/uL [facility] 12/26/2024 4:28 PM EDT 12/26/2024 4:31 PM EDT Generic External Data Provider LAB BLOOD ORDERAB LES Final Result Performing Organization Address [facility]/ZIP Co de Phone Number [facility] [address] [place] [phone] * Magnesium (12/26/2024 4:28 PM EDT) Pathologist [facility] Magnesium 2.4 1.6 - 2.6 mg/dL [facility] 12/26/2024 4:28 PM EDT 12/26/2024 4:31 PM EDT Generic External Data Provider LAB BLOOD ORDERAB LES Final Result Performing Organization Address [facility] Co de Phone Number [facility] [address] [place] [address] [phone] * (ABNORMAL) Comprehensive Metabolic Panel (12/26/2024 4:28 PM EDT) Sodium 139 135 - 145 mmol/L [facility] Potassium 4.1 3.3 - 5.1 mmol/L [facility] Chloride 103 96 - 108 mmol/L [facility] Carbon Dioxide 28 22 - 29 mmol/L [facility] Anion Gap 12 12 - 20 [facility] Urea Nitrogen (BUN) 8(L) 9 - 16 mg/dL [facility] Creatinine, Serum 0.72 0.5 - 1.4 mg/dL [facility] Creatinine Clr Calc Pharmacy 127.5 [facility] Comment:eGFR (calculated fro m the MDRD study equation) and eCrCl(calculated from the Cockcroft-Gault equation) are based ondifferent parameters and may not yield comparable results.If eCrCl result is absurd, please check patient'sheight/weight. Estimated Glomerular Filt Rate >60 [facility] Comment:Chronic Kidney Disea se: Estimated GFR < 60 mL/min/1.29h4Fulfja Kidney Disease: Estimated GFR < 15 mL/min/1.73m2 Glucose 98 60 - 115 mg/dL [facility] Calcium 9.2 8.4 - 10.2 mg/dL [facility] Bilirubin, Total 0.3 0.0 - 1.0 mg/dL [facility] Aspartate Amino Transferase 35 5 - 37 U/L [facility] Alanine Aminotransferase 32 0 - 40 U/L [facility] Total Protein 7.6 6.5 - 8.0 g/dL [facility] Albumin Level 4.9 3.5 - 5.0 g/dL [facility] Alkaline Phosphatase 87 39 - 117 U/L [facility] 12/26/2024 4:28 PM EDT 12/26/2024 4:31 PM EDT us Generic External Data Provider LAB BLOOD ORDERAB LES Final Result Performing Organization Address City/State/[facility] Co de Phone Number [facility] [address] [place] [phone] * ECG 12 lead (12/26/2024 3:17 PM EDT) Narrative Naima Morton MD - 12/26/2024 3:17 PM EDT Normal sinus rhythm no ST's changes heart rate 83 us Naima Hyman MD ECG ORDERABLES Final Result from Last [address] [place] [address] [place] [address] C3 Care Teams Acetylene Burner Relationship Specialty Start Date End Date Naima Morton MD [address] [place] [address] PCP - General Internal Medicine 12/26/24 Dejan Sims RN [address] [place] [phone] Registered Nurse Family Medicine 03/12/25 Marlin Karimi 03/12/25
--- OUTSIDE RECORDS SUMMARY | 2025-03-28 02:00 | XMS_ITS | Clinical Summary ---
Author Organization [facility] Address [address] [place] [address] Phone Care Team Providers Care Rehab Office Coordinator Name Role Phone Physician, Pcp Unknown Primary [...] Medical History Date Comments Bipolar affective disorder ([facility] V24, [facility] V28) Schizoaffective disorder ([facility] V24, [facility] V 28) Anxiety PTSD (post-traumatic [...] 5 Years) and At-Risk Patients (6 to 49 Years) (1 of 2 - PCV) 2003 Cholesterol Screening (Lipid Panel) 06/07/2024 HIV Screening 06/07/2024 Hepatitis C Screening 06/07/2024 Social Influencers of Health Screening 06/07/2024 Depression Screening 06/28/2024 COVID-19 Vaccine ( - 2023-2 5 season) 2025 Influenza Vaccine (#1) 2025 HIB Vaccines Aged Out No longer eligi [...] topic Insurance MEDICAID - [place] Care Teams Rehab Office Coordinator Relationship Specialty Start Date End Date Physician, Pcp Unknown PCP - General 06/07/24
--- OUTSIDE RECORDS SUMMARY | 2025-03-28 02:00 | XMS_ITS | Patient Health Record ---
Author Organization [facility] Address [address] [place] [address] Care Team Providers Care Mgmt Consultant Name Role Phone Rafaela G[facility] Primary Care Provider Selam enriquez Reason For Referral No Information Plan Of Treatment Pending Test Test Name Order Date XRAY KNEE RIGHT 08/22/2019 Insurance Providers Payer Name Payer Address Payer Phone Subscriber Number Group Number Insured Name Patient Relationship to Insured Coverage Start Date Coverage End Date Medicaid [address] [place] [address] [id number] Bryn Tovar Self - patient is the insured [facility] [address] [place] [address] [phone] [id number] Bryn Conti Self - patient is the insured
--- OUTSIDE RECORDS SUMMARY | 2025-03-28 02:00 | XMS_ITS | Data Portability ---
Author Organization [facility] Address [address] [facility] [place] [address] Care Team Providers Care Claims Supervisor Name Role Phone ANANYA BRYANT Primary Care Provider [phone] ABDIEL HERMOSILLO Referring Provider [phone] Assessment No assessment recorded. Plan of Treatment Reminders Order Date Submit Date Provider Last Modified By Organization Details Last Modified Time Details Appointments None recorded. Lab vitamin B12 + folate, serum or blood [email or web address] [facility], [address] [place] [address], [address], 3 08:32:53 CBC w/ auto diff [email or web address] [facility], [address] [place] [address], [phone], 3 08:32:52 CMP, serum or plasma [email or web address] [facility], [address] [place] [address], [address], 3 08:32:52 lipid panel, serum [email or web address] [facility], [address] [place] [address], [address], 3 08:32:53 HbA1c (hemoglob in A1c), blood [email or web address] [facility], [address] [place] [address], [address], 3 08:32:53 TSH, serum or plasma [email or web address] [facility], [address] [place] [address], [place], [address], 3 08:32:53 Referral None recorded. Procedures None recorded. Surgeries None recorded. Imaging None recorded. Medication Orders None recorded. Patient TargetsNo targets recorded. Patient Instructions Encounter Date Encounter Id Patient Instructions Last Modified By Organization Details Last Modified Time 05/01/2022 [id number] nausea and vomit ing: care instructions Not available 05/01/2022 16:01:09 upper gastrointestinal bleeding: care instructions Not available 05/01/2022 16:01:09 Reason for Referral None Reported. Medical Equipment None Reported. Allergies Allergen ID Allergen Name Allergen Category Reaction Reaction Severity Criticality Documentation Date Start Date Code Code System Note Provider Name and Address Organization Details Recorded Time [id number] Haldol medicatio n other Not available Not available 05/01/2022 [id number] RxNorm facia l movem [facility], [facility] 2 15:41:39 Medications Name Sig Start Date Stop Date Status Note LastModified by Organization Details LastModified Time lamotrigine 150 mg tablet TAKE 1/2 TABLET BY MOUTH TWICE A DAY 05/01 completed Not Available Not Available Not Available clonidine HCl 0.1 mg tablet TAKE 1 TABLET BY MOUTH TWICE A DAY NEEDED active Not Available Not Available No t Available quetiapine 300 mg tablet TAKE 1 TABLET BY MOUTH EVERYDAY AT BEDTIME active Not Available Not Available No t Available ofloxacin 0.3 % eye drops APPLY 2 DROPS INTO AFFECTED EYE(S) 4 TIMES PER DAY FOR 7 DAYS 05/01 completed Not Available Not Available Not Available lamotrigine 25 mg tablet TAKE 3 TABLETS BY MOUTH TWICE A DAY active Not Available Not Available No t Available omeprazole 20 mg capsule,del ayed release TAKE 1 CAPSULE BY MOUTH EVERY DAY FOR 2 WEEKS BEFORE MEALS 2021 active Not Available Not Available Not Avai lable gabapentin 100 mg capsule TAKE 2 CAPSULES BY MOUTH 3 TIMES A DAY active Not Available Not Available No t Available propranolol 20 mg tablet TAKE 1 TAB TWICE A DAY FOR ELEVATED BLOOD PRESSURE 05/01 completed Not Available Not Available Not Available lamotrigine 100 mg tablet TAKE 1/2 TABLET BY MOUTH TWICE A DAY 05/01 completed Not Available Not Available Not Available chlorpromaz ine 50 mg tablet TAKE 1 TABLET BY MOUTH TWICE A DAY NEEDED SEVERE ANXIETY/A GITATION 05/01 completed Not Available Not Available Not Available Vitals Date Recorded Body weight Body mass index (BMI) Body height Respiratory rate Heart rate Oxygen saturation Oxygen saturation in Arterial blood by Pulse oximetry Systolic And Diastolic Provider Name and Address Organization Details Last Updated DateTime 2 90278.7 4 g 25.1 kg/m2 172.72 cm 16 /min 85 /min 100 % 100 % 156/90 mm[Hg] Anderson Harper [place] [facility] 15:44:55 Social History Question Answer Notes LastModified by Organizat ion Details LastModified Time Tobacco Smoking Status Current [facility]/01/2022 15:43:55 What Is Your Level Of Caffeine Consumption? Moderate Information not available 05/01/2022 What Was The Date Of Your Most Recent Tobacco Screening? 05/01/2022 Information not available 05/01/2022 At What Age Did You Start Smoking Tobacco? 12 Information not available 05/01/2022 How Much Tobacco Do You Smoke? 0.25 PPD Information not available 05/01/2022 Sex: Unknown Functional Status Question Answer Note LastModified by Organization D etails LastModified Time What is your level of alcohol consumption? None Information not available 05/01/2022 Mental Status None recorded. Family History Relationship Description Onset Age of this Age Resolved Age Notes LastModified by Organization Details LastModified Time Father Diabetes mellitus Not available 2021 15:43:17 Medical History No medical history recorded. Immunizations Vaccine Type Date Status Note Provider Nam e and Address Organization Details Recorded Time COVID-19, mRNA, LNP-S, PF, 100 mcg/0.5mL dose or 50 mcg/0.25mL dose 10/22/2020 completed Ananya Bryant NP [address] [place], [address], [facility] 05/01/2022 15:57:23 COVID-19, mRNA, LNP-S, PF, 30 mcg/0.3 mL dose 07/02/2021 completed Ananya Bryant NP [address] [place], [address], [facility] 05/01/2022 15:57:23 COVID-19, mRNA, LNP-S, bivalent, PF, 50 mcg/0.5 mL or 25mcg/0.25 mL dose 03/05/2022 completed Ananya Bryant NP [address] [place], [address], [facility] 05/01/2022 15:57:23 COVID-19, mRNA, LNP-S, PF, 100 mcg/0.5mL dose or 50 mcg/0.25mL dose 11/19/2020 completed Ananya Bryant NP [address] [place], [address], [facility] 05/01/2022 15:57:23 DT (pediatric) 12/06/2018 completed Ananya Bryant NP [address] [place], [address], [facility] 05/01/2022 15:57:23 Past Encounters Encounter ID Performer Location Encounter Start Date Encounter Closed Date Diagnosis/Indication Diagnosis SNOMED-CT Code Diagnosis ICD10 Code Diagnosis IMO Codes Diagnosis Note [id number] Ananya Bryant NP [facility] AT [address], [address] [place] [address] 05/01/2022 15:36:32 05/01/2022 16:05:08 Nausea 778711951 R11.0 has been going on for many months, reports beginning of march was very bad, uncontroll able vomiting. went to the ER.has been better since being on omeprazole Gastroesop hageal reflux disease without esophagitis 030732689 K21.9 - improved on omeprazole .- advised to avoid spicy foods, acidic foods, decrease smoking, avoid alcohol Hematemesis 8890606 K92. 0 - reports one episode, from vomiting so much. has not occured since.- has appt with GI 05/26.- check CBC to evaluate H&H Adult heal th examination 996213256 Z00.00 due for CPE. will check labs History of alcoholism 16 1061726 F10.21 Health Concerns Section Related Observation LastModified by Organization Detai ls LastModified Time None Recorded Concern Status LastModified by Organization Details LastModified Time None Recorded Advance Directives Directive None Recorded Payers Insurance Date Sequence Insurance Name Policy Number Policy Siu Covered Member ID Siu Member ID Guarantor Name 05/29/2022 1 [place] [id number] [place]) Bryn Conti [id number] Bryn Conti 04/17/2022 1 [place] [id number] Bryn Conti [id number] Bryn Conti Notes Date Note Type Note Provider Name and Address Organization Details Recorded Time 05/01/2022 text/html Patient is a 37 year old male who presents to the office as a new patient and for chronic nausea.Last PCP was Dr. Young at [facility] been a couple of years since seeing PCP. He went to [facility] ER 03/30/22 for ongoing nausea. He was started on omeprazole and referred to GI, but unable to schedule appt without referral.After Omeprazole ran out, he developed nausea again.Has appt with GI 05/26. Reports he used to have an alcohol addition-alcohol poisoning at least weekly.stopped drinking about 1.5 months ago. [facility] prescribes- bipolar with anxiety and PTSDSpeaks with therapist every couple of weeks, and psychiatrist elsie.Currently on clonidine prn, gabapentin TID, lamotrigine 75mg BID, quetiapine 300mg qhs Has a hx of drug abuse as well. Was doing cocaine, but then when he tried to come off, he switched to methylphetamine and thought he may have taken too much, was up for 3 nights in a row. HR went from 120-160, called 911. that was a few years ago. Smokes marijuana.Smokes 1/4 ppd Ananya Bryant NP [address] [place], [address], [facility] 05/04/2022 09:42:33
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
[2025-03-28 02:01] LABS: MANUAL DIFF FLAG NO
[2025-03-28 02:02] LABS: Hematocrit 41.2 % (42.0-52.0); Hemoglobin 14.2 g/dl (14.0-18.0); Imm Gran Abs Auto 0.06 X10*3/uL (0.00-0.03); Imm Gran Pct Auto 0.5 % (0.0-0.4); Lymphocytes Absolute Auto 2.9 X10*3/uL (1.2-4.9); Mean Corpuscular HGB Conc 34.5 g/dl (31.0-36.0); Mean Corpuscular Hemoglobin 29.3 pg (27.0-33.0); Mean Corpuscular Volume 84.9 fL (80.0-98.0); NRBC Abs Auto 0.000 X10*3/uL (0.0-0.012); NRBC Pct Auto 0.0 /100WBC (0.0-0.2); Platelet Count 258 X10*3/uL (160-400); Red Blood Count 4.85 X10*6/uL (4.60-5.80); White Blood Count 11.8 X10*3/uL (4.8-10.8)
[2025-03-28 02:04] LABS: Appearance Urine Clear; Glucose Urine UA Negative (Negative); PH 5.5 (5.0-9.0); Specific Gravity - Urine 1.015 (1.005-1.025); UMIC TRIGGER UACC YES
[2025-03-28 02:13] LABS: Cannabinoid Screen Urine POSITIVE (Not Detect)
[2025-03-28 02:23] LABS: Acetaminophen LAB < 3 mcg/mL (<30); Salicylate < 5.0 mg/dL (15-30); Troponin-I High Sensitivity < 2.7 ng/L (<3.5-35.0)
[2025-03-28 02:23] LABS: Alanine Aminotransferase 30 U/L (0-40); Albumin Level 4.7 g/dL (3.5-5.0); Alkaline Phosphatase 81 U/L (39-117); Anion Gap 15 (12-20); Aspartate Amino Transferase 25 U/L (5-37); Blood Urea Nitrogen 23 mg/dL (9-16); Calcium 9.0 mg/dL (8.4-10.2); Carbon Dioxide 25 mmol/L (22-29); Chloride 103 mmol/L (96-108); Creatinine Clr Calc Pharmacy 129.8; Estimated Glomerular Filt Rate > 60; Magnesium 2.1 mg/dL (1.6-2.6); Potassium 3.9 mmol/L (3.3-5.1); Sodium 139 mmol/L (135-145); Total Protein 7.5 g/dL (6.5-8.0)
--- NOTE | 2025-03-28 08:36 | PC.NURSE ---
Assumed care, report received. Pt is currently sleeping, he is brought breakfast. Safety is maintained.
[2025-03-28 13:18] VITALS: BP 170/105; PULSE 93; RESP 18; TEMP 36.7
== END 2025-03-28 13:26 | disposition home or self-care (01) ==
PROVIDERS: Emergency Provider Emergency Medicine
DX: F29 Unspecified psychosis not due to a substance or known physiological condition (principal); F19.90 Other psychoactive substance use, unspecified, uncomplicated; F22 Delusional disorders; Z79.899 Other long term (current) drug therapy
CPT/HCPCS: 36415; 80053; 80143; 80179; 80307; 81001; 83735; 84484; 85025; 93005; 99285; S9485

== ENCOUNTER → 2025-03-28 01:03 | Outpatient (BNV) | payer MEDICAID, SELFPAY | PROVIDERS: Emergency Provider Emergency Medicine; Visit Provider Internal Medicine | DX: R00.2 Palpitations (principal); I10 Essential (primary) hypertension | CPT/HCPCS: 93010 ==

== ENCOUNTER 2025-04-05 03:54 | Emergency (ER) | payer MEDICAID, SELFPAY ==
--- NOTE | 2025-04-05 04:21 | ECG_ITS ---
Test Reason : CP,ANXIETY Blood Pressure : */* mmHG Vent. Rate : 72 BPM Atrial Rate : 72 BPM P-R Int : 160 ms QRS Dur : 110 ms QT Int : 382 ms P-R-T Axes : 38 4 15 degrees QTcB Int : 418 ms Normal sinus rhythm Incomplete right bundle branch block Borderline ECG When compared to the previous EKG of No significant changes seen Referred By: Dashawn Galindo Electronically Signed By: TERESA JAQUEZ MD
--- NOTE | 2025-04-05 05:20 | ED_ITS ---
HPI - General Adult General Chief complaint: Anxiety Stated complaint: Anxiety Time Seen by Provider: 04/05/25 04:24 History of Present Illness ED Provider: Mateo MUHAMMAD narrative: The patient is a 40-year-old male with a history of chronic mental illness. The patient was last here on March 28. At that time he said that he has been using alcohol and also cocaine and fentanyl. At that time he said he was drinking 8-10 nips per day and that he had also been smoking fentanyl and snorting cocaine. He was ultimately discharged from the emergency room on March 28 but subsequently he arranged for spending time at a detox facility in [facility], the [facility]. He says that he was at the [facility] for 6 days. He left yesterday morning. He says that he left because he needed to help a friend who was in trouble. He says that his mother, who had originally driven him to the [facility], picked him up yesterday. He then came to this area and helped a friend who was in trouble. He then decided he wanted to come to the emergency room because he has been having a lot of trouble sleeping. The patient says that he has a regular psychiatric prescriber who he sees virtually. He is normally on Thorazine. He says that he had a meeting with his prescriber the day after he left the emergency room previously (he spoke to his prescriber on March 29). He says that his prescriber increased his dose of Thorazine to 100 mg daily. The patient says that he has not been taking the Thorazine at 100 mg daily. He says he has been taking it someone intermittently at [facility]. He says that he came to the emergency room because he was feeling very anxious about his health. He says that he has been taking Ativan at the [facility] but did not take a dose yesterday morning. He feels like he needs something to help calm him down. He is requesting a dose of Thorazine. He says that he is afraid to take the Thorazine on his own however. Related Data Home Medications ?Medication ?Instructions ?Recorded ?Confirmed buprenorphine 8 mg-naloxone 2 mg 2 film buccal BID 07/20/24 sublingual film (Suboxone) Previous Rx's ?Medication ?Instructions ?Recorded clonidine HCl 0.1 mg tablet 0.1 mg PO BID withdrawal # 14 tabs 12/26/24 Allergies Allergy/AdvReac Type Severity Reaction Status Date / Time haloperidol (From Haldol) Allergy Involuntary Verified 03/28/25 01:01 Spasms olanzapine (From Zyprexa) Allergy Involuntary Verified 03/28/25 01:01 Spasms Review of Systems 2 Review of Systems: Yes all other systems are reviewed and are negative [facility] Social History Social History Alcohol intake: current Alcohol intake frequency: 3 or more drinks per day Substance Use Type: Crack/Cocaine and Opiates Advance Directives: No Advance Directives Information Provided: Yes Physical Exam ED Vital Signs: Vital Signs - 24 hr 04/05/25 06:30 04/05/25 07:41 Pulse Rate 71 73 Respiratory Rate 20 Blood Pressure 160/71 H 130/76 Pulse Oximetry 97 Oxygen Delivery Method Room Air Const Other: The patient is awake and alert. He does not appear in any distress. His vital signs were a temperature of 97.0 degrees, heart rate 89, respiratory rate 20 blood pressure 191/100, O2 sat 94% on room air. Orientation/consciousness: patient oriented x3 HENMT Other: The face is symmetrical. ?Mucous membranes moist. Eyes Other: Pupils are round equal, conjunctivae are clear, extraocular movements intact Neck Neck: Yes normal visual inspection, Yes full ROM and Yes no JVD Resp Effort & Inspection: normal respiratory effort Auscultation: clear to auscultation bilaterally Cardio Rate: regular rate Rhythm: regular rhythm Heart sounds: S1 normal heart sound present and S2 normal heart sound present GI Other: Abdomen is soft and nontender Skin Other: The skin is dry and unremarkable Neuro General: patient oriented x3, tone normal, moves all extremities, no focal motor deficits and CN's II-XI intact bilaterally Extrem Other: There is no calf swelling or tenderness. No asymmetry. No peripheral edema. Psych Other: The patient is reasonably well-kempt. He makes reasonably good eye contact. He perseverates about his anxiety. Medications Administered Discontinued Medications Generic Name Dose Route Start Last Admin Trade Name Freq PRN Reason Stop Dose Admin Buprenorphine/Naloxone 1 film 04/05/25 09:34 04/05/25 09:40 Buprenorphine/Naloxone 2/0.5mg Film SUBLINGUAL 04/05/25 09:35 1 film ONCE ONE Administration Chlorpromazine HCl 50 mg 04/05/25 05:20 04/05/25 05:45 Chlorpromazine Hcl 25 Mg Tablet PO 04/05/25 05:21 50 mg ONCE ONE Administration Clonidine HCl 0.1 mg 04/05/25 06:31 04/05/25 06:43 Clonidine Hcl 0.1 Mg Tablet PO 04/05/25 06:32 0.1 mg ONCE ONE Administration Protocol Diazepam 5 mg 04/05/25 07:19 04/05/25 07:56 Diazepam 5 Mg Tablet PO 04/05/25 07:20 5 mg ONCE ONE Administration Medical Decision Making Medical Decision Making MDM Narrative: The patient is a 40-year-old male with a history of chronic mental illness who is normally prescribed Thorazine among other psychiatric medications. Yesterday he left the [facility] facility in [place]. He says that he had to help a friend who was in crisis. This made him feel very anxious and he ultimately came to the emergency room. He has multiple somatic complaints but I do not think he has an acute medical issue. Clinically he looks well aside from his anxiety. His vital signs are unremarkable. His EKG [place]remarkable. [place] [id number] but there was no left shift and he does not describe any symptoms that make me think that he has an infection. He was requesting a dose of Thorazine. He says that he was recently told to increase his Thorazine to 100 mg per dose by his psychiatric prescriber. He is somewhat concerned about this increase in his dose. He is asking for 50 mg of Thorazine. This was provided. He later asked for clonidine which he is also prescribed. Ultimately he asked for something else for anxiety and he was given 2 mg of diazepam. He then slept for awhile and then asked for 2 mg of buprenorphine (he says he is prescribed Sublocade 2 mg b.i.d. since leaving [facility]). He then said that he felt better and wanted to go home. He is referred to his primary care doctor at the [facility] as well as his outpatient psychiatric and behavioral providers. Lab Data 04/05/25 04:13 04/05/25 04:38 Labs: Lab Results 04/05/25 04/05/25 Range/Units 04:13 04:38 WBC 16.2 H (4.8-10.8) X10*3/uL RBC 5.02 (4.60-5.80) X10*6/uL Hgb 14.6 (14.0-18.0) g/dl Hct 43.3 (42.0-52.0) % MCV 86.3 (80.0-98.0) fL MCH 29.1 (27.0-33.0) pg MCHC 33.7 (31.0-36.0) g/dl RDW 12.6 (11.0-16.0) % Plt Count 240 (160-400) X10*3/uL MPV 10.0 (9.4-12.4) fL Immature Gran % (Auto) 1.3 H (0.0-0.4) % Neut % (Auto) 69.7 (45-73) % Lymph % (Auto) 19.0 L (20-40) % [place] % (Auto) 8.9 (2-11) % Eos % (Auto) 0.6 (0-4) % Baso % (Auto) 0.5 (0-2) % Lymph # (Auto) 3.1 (1.2-4.9) X10*3/uL [place] # (Auto) 1.5 H (0.1-1.2) X10*3/uL Eos # (Auto) 0.1 (0.0-0.4) X10*3/uL Baso # (Auto) 0.1 (0.0-0.2) X10*3/uL Abs Immat Gran (auto) 0.21 H (0.00-0.03) X10*3/uL Absolute Neuts (auto) 11.3 H (2.0-8.3) x10*3/uL Absolute Nucleated RBC 0.000 (0.0-0.012) X10*3/uL Nucleated RBC % (auto) 0.0 (0.0-0.2) /100WBC Sodium 137 (135-145) mmol/L Potassium 3.9 (3.3-5.1) mmol/L Chloride 105 (96-108) mmol/L Carbon Dioxide 21 L (22-29) mmol/L Anion Gap 14 (12-20) BUN 19 H (9-16) mg/dL Creatinine 0.68 (0.5-1.4) mg/dL Estim Creat Clear Calc TNP Estimated GFR > 60 Random Glucose 127 H (60-115) mg/dL Calcium 9.8 D (8.4-10.2) mg/dL Troponin I High Sens < 2.7 (<3.5-35.0) ng/L Ethyl Alcohol < 10 mg/dL Discharge Plan Discharge Clinical Impression: Anxiety Patient Disposition: Home, Self-Care Additional Instructions: Your testing today seems reassuring. Please continue your regular medications. Please follow up with your regular providers. Return to the emergency room if you feel significantly worse. Prescriptions: No Action buprenorphine-naloxone [Suboxone] 8-2 mg Film 2 film BUCCAL BID Rx Instructions: place 1 film on inside of (each) cheek clonidine HCl 0.1 mg tablet 0.1 mg PO BID Qty: 14 0RF Referrals: [facility] [Primary Care Provider, Medical] Interventions: ED Discharge Assessment Last Done: 04/05/25 09:46 Discharge Date/Time: 04/05/25 09:55 Print Language: Citizen [place]
[2025-04-05 06:02] LABS: Hematocrit 43.3 % (42.0-52.0); Hemoglobin 14.6 g/dl (14.0-18.0); Imm Gran Abs Auto 0.21 X10*3/uL (0.00-0.03); Imm Gran Pct Auto 1.3 % (0.0-0.4); Lymphocytes Absolute Auto 3.1 X10*3/uL (1.2-4.9); MANUAL DIFF FLAG NO; Mean Corpuscular HGB Conc 33.7 g/dl (31.0-36.0); Mean Corpuscular Hemoglobin 29.1 pg (27.0-33.0); Mean Corpuscular Volume 86.3 fL (80.0-98.0); NRBC Abs Auto 0.000 X10*3/uL (0.0-0.012); NRBC Pct Auto 0.0 /100WBC (0.0-0.2); Platelet Count 240 X10*3/uL (160-400); Red Blood Count 5.02 X10*6/uL (4.60-5.80); White Blood Count 16.2 X10*3/uL (4.8-10.8)
[2025-04-05 06:08] LABS: Anion Gap 14 (12-20); Blood Urea Nitrogen 19 mg/dL (9-16); Calcium 9.8 mg/dL (8.4-10.2); Carbon Dioxide 21 mmol/L (22-29); Chloride 105 mmol/L (96-108); Estimated Glomerular Filt Rate > 60; Potassium 3.9 mmol/L (3.3-5.1); Sodium 137 mmol/L (135-145)
[2025-04-05 06:09] LABS: Troponin-I High Sensitivity < 2.7 ng/L (<3.5-35.0)
[2025-04-05 06:30] VITALS: BP 160/71; PULSE 71
[2025-04-05 07:41] VITALS: BP 130/76; PULSE 73; RESP 20; O2SAT 97
--- NOTE | 2025-04-05 08:57 | PC.NURSE ---
Care of Pt assumed at change f shift (0700.) Pt is noted to be resting on stretcher. Pt frequently reports feeling anxious and palpitations. He requests to have his BP assessed and requests water. Pt is hyperverbal and requires frequent re-direction. Pt medicated per MAR and is noted to rest quietly for an extended period of time. Pt observed getting up to use the bathroom without distress. Awaiting dispo.
[2025-04-05] MEDS: Buprenorphine/Naloxone 2/0.5mg FILM 1 FILM SUBLINGUAL (09:40)
[2025-04-05 09:46] VITALS: BP 130/76; PULSE 73; RESP 20; TEMP -17.7; TEMP 0; O2SAT 97
--- NOTE | 2025-04-05 09:49 | PC.NURSE ---
Pt cleared for D/C Pts medications inventories and placed in sealed bag by Pt and overnight RN. Sealed bag of medications returned to Pt at this time--form signed by this RN and Pt upon return of medications. Pt reports feeling much better at this time. No complaints offered at time of d/c.
== END 2025-04-05 09:55 | disposition home or self-care (01) ==
PROVIDERS: Emergency Provider Emergency Medicine
DX: F41.9 Anxiety disorder, unspecified (principal); Z79.899 Other long term (current) drug therapy; Z88.8 Allergy status to other drugs, medicaments and biological substances
CPT/HCPCS: 36415; 80048; 80307; 84484; 85025; 93005; 99283; 99284

== ENCOUNTER → 2025-04-05 04:21 | Outpatient (BNV) | payer MEDICAID, SELFPAY | PROVIDERS: Emergency Provider Emergency Medicine; Visit Provider Internal Medicine Cardiovascular Disease | DX: I45.10 Unspecified right bundle-branch block (principal) | CPT/HCPCS: 93010 ==